=== PATIENT | male | born 1950 | race Caucasian/White ===

== ENCOUNTER 2016-05-31 01:16 | Emergency (ER) | payer BC ==
[2016-05-31] MEDS ORDERED: KETOROLAC 60 MG/2 ML VIAL IVP STA (01:31)
[2016-05-31] MEDS ORDERED: KETOROLAC 30 MG/ML VIAL ONE (01:42)
[2016-05-31 01:43] LABS: BILIRUBIN,URINE NEGATIVE (NEGATIVE)
[2016-05-31 01:44] LABS: UA w/ MICROSCOPIC CHARGE YES
--- NOTE | 2016-05-31 01:51 | ED Physician Documentation ---
PD HPI BACK PAIN - Stated complaint Stated Complaint: L FLANK PX - Chief complaint Chief Complaint: Back Pain - History obtained from History obtained from: Patient, Family - History of Present Illness Timing - onset: How many days ago (2) Timing - details: Still present, Intermittant Location: Left Quality: Pain, Aching Associated symptoms: Fever. No: Weakness, Numbness, Incontinent of urine, Unable to urinate Improves with: Nothing Worsened by: Twisting, Palpation Contributing factors: Twisting Similar symptoms before: Has not had sx before Recently seen: Not recently seen - Additional information Additional information: Patient is a 66 year old male with a history of a prior [place] who is presenting to the emergency department for left sided flank pain. Patient states that he broke or bruised a rib last year but he has been better for awhile., patient states that for the last two days he has had intermittent stabbing left sided flank pain, with radiation to his groin. Patient denies any trauma bur reports he did have to run out of his car quickly two days prior because his engine started smoking. Review of Systems Constitutional: reports: Fever, Chills Eyes: denies: Loss of vision, Decreased vision Ears: denies: Loss of hearing, Ear pain, Drainage/discharge Nose: denies: Rhinorrhea / runny nose, Congestion, Sinus pressure / pain Throat: denies: Dental pain / toothache, Oral lesions / sores Cardiac: reports: Pedal edema. denies: Chest pain / pressure, Palpitations Respiratory: denies: Dyspnea, Cough, Wheezing GI: reports: Abdominal Pain. denies: Nausea, Vomiting, Constipation, Diarrhea : denies: Dysuria, Frequency, Hesitancy, Hematuria Skin: denies: Rash, Lesions, Abrasion (s), Laceration (s) Musculoskeletal: reports: Back pain. denies: Joint pain Neurologic: denies: Generalized weakness, Focal weakness, Numbness Immunocompromised: denies: Immunocompromised PD PAST MEDICAL HISTORY - Past Medical History Cardiovascular: Hypertension, High cholesterol Respiratory: None Neuro: None Endocrine/Autoimmune: Type 2 diabetes GI: GERD : None HEENT: Other Psych: None Musculoskeletal: None Derm: None - Past Surgical History Past Surgical History: Yes HEENT: Cataracts - Present Medications Home Medications: Ambulatory Orders Medication Instructions Recorded Confirmed Insulin Glargine [Lantus Solostar] 46 unit SUBQ DAILY 03/10/14 05/31/16 Metformin HCl [Metformin HCl ER] 1,000 mg PO DAILY 03/10/14 04/20/16 Aspirin 81 mg PO DAILY 04/20/16 05/31/16 Atorvastatin Calcium 80 mg PO DAILY 04/20/16 05/31/16 Chlorthalidone 25 mg PO DAILY 04/20/16 05/31/16 Clopidogrel Bisulfate [Plavix] 75 mg PO DAILY 04/20/16 04/20/16 Lisinopril 1 tab PO DAILY 04/20/16 04/20/16 Metoprolol Succinate 100 mg PO DAILY 04/20/16 04/20/16 amLODIPine [Norvasc] 5 mg PO DAILY 04/20/16 05/31/16 Carvedilol 25 mg PO BID 05/31/16 05/31/16 Insulin Lispro [Humalog] 05/31/16 Losartan Potassium 50 mg PO DAILY 05/31/16 05/31/16 - Allergies Allergies/Adverse Reactions: Allergies Allergy/AdvReac Type Severity Reaction Status Date / Time No Known Drug Allergies Allergy Verified 04/20/16 05:46 - Social History Does the pt smoke?: No Smoking Status: Never smoker Does the pt drink ETOH?: No Does the pt have substance abuse?: No - Immunizations Immunizations are current?: Yes - POLST Patient has POLST: No PD ED PE NORMAL - Vitals Vital signs reviewed: Yes - General General: Alert and oriented X 3 - HEENT HEENT: Atraumatic, PERRL, Pharynx benign - Neck Neck: Supple, no meningeal sign, No JVD - Cardiac Cardiac: RRR, No murmur - Respiratory Respiratory: No respiratory distress - Abdomen Abdomen: Soft - Neuro Neuro: Alert and oriented X 3, 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 No: Vertebral tenderness - Extremities Extremities: Pedal edema bilateral Results - Vitals Vitals: Vital Signs - 24 hr 05/31/16 05/31/16 01:31 02:24 Temperature 37.5 C Heart Rate 77 67 Respiratory 15 16 Rate Blood Pressure 182/72 H 173/69 H O2 Saturation 98 97 Oxygen O2 Source Room air - Labs Labs: Laboratory Tests 0205/31/16 05/31/16 01:25 01:40 01:55 WBC 12.0 H RBC 4.12 L Hgb 11.2 L Hct 34.1 L MCV 82.7 MCH 27.1 MCHC 32.8 RDW 15.1 H Plt Count 227 MPV 9.8 Neut # 8.8 H Lymph # 1.5 [place] # 1.1 H Eos # 0.5 Baso # 0.2 H Absolute Nucleated RBC 0.01 Nucleated RBCs 0.1 Sodium 134 L Potassium 4.5 Chloride 102 Carbon Dioxide 24 Anion Gap 8.0 BUN 45 H Creatinine 1.9 H Estimated GFR (MDRD) 36 L Glucose 236 H Calcium 8.8 Total Bilirubin 0.5 AST 18 ALT 21 Alkaline Phosphatase 121 Troponin I Total Protein 6.5 L Albumin 3.4 Globulin 3.1 Albumin/Globulin Ratio 1.1 Lipase 26 Urine Color YELLOW Urine Clarity CLEAR Urine pH 6.0 Ur Specific [place] 1.025 Urine Protein >=300 Urine Glucose (UA) 250 H Urine Ketones NEGATIVE Urine Occult Blood SMALL H Urine Nitrite NEGATIVE Urine Bilirubin NEGATIVE Urine Urobilinogen 0.2 (NORMAL) Ur Leukocyte Esterase NEGATIVE Urine RBC 0-5 Urine WBC 0-3 Ur Squamous Epith Cells RARE Squamous Urine Bacteria Rare Urine Casts 3-5 Hyaline Casts Ur Microscopic Review INDICATED Urine Culture Comments NOT INDICATED 05/31/16 01:55 WBC RBC Hgb Hct MCV MCH MCHC RDW Plt Count MPV Neut # Lymph # [place] # Eos # Baso # Absolute Nucleated RBC Nucleated RBCs Sodium Potassium Chloride Carbon Dioxide Anion Gap BUN Creatinine Estimated GFR (MDRD) Glucose Calcium Total Bilirubin AST ALT Alkaline Phosphatase Troponin I < 0.04 Total Protein Albumin Globulin Albumin/Globulin Ratio Lipase Urine Color Urine Clarity Urine pH Ur Specific [place] Urine Protein Urine Glucose (UA) Urine Ketones Urine Occult Blood Urine Nitrite Urine Bilirubin Urine Urobilinogen Ur Leukocyte Esterase Urine RBC Urine WBC Ur Squamous Epith Cells Urine Bacteria Urine Casts Ur Microscopic Review Urine Culture Comments - Rads (name of study) ct abdomen/pelvis Radiology: Final report received (no urolithiasis, mild bibasilar atelectasis, trace pericardial effusion, moderate stool in the colon, ), See rad report PD MEDICAL DECISION MAKING - ED course Complexity details: reviewed old records, reviewed results, re-evaluated patient , considered differential, d/w patient, d/w family ED course: Patient was seen and examined at bedside. Patient's urine was collected. albs and imaging was ordered as pyelonephritis and renal stone were a possibility. Patient was treated with toradol for pain. When patient returned the results were reviewed. There was no acute pathology noted. Patient's renal insufficiency and leukocytosis was at patient's baseline. Patient had cardiology next week and continued to deny any chest pain. Patient's pain improved from an 8 to a 2. Patient required no further work up and was stable for discharge with outpatient follow up. Departure - Departure Disposition: 01 Home, Self Care Clinical Impression: Left flank pain Condition: Good Instructions: ED Flank Pain Uncertain Cause Follow-Up: Se Mercado MD [Primary Care Provider] - Comments: Your diagnostics today were unremarkable. There is no sign of fracture, infection or kidney stone. Your pain is likely musculoskeletal in nature. You should take tylenol as needed for pain. You can also use ice and/or heat to help with the pain. Your swelling and breathing is likely due to your heart. You should go to your appointment with your heart doctor next week. You should continue with your medications, and low salt, low fat diet. You may return to the emergency department at any time for new, worsening or uncontrollable symptoms.
[2016-05-31 01:56] LABS: WBC,URINE 0-3 /HPF (0-3)
[2016-05-31 02:16] LABS: ALBUMIN/GLOBULIN RATIO 1.1 (1.0-2.2); BILIRUBIN,TOTAL 0.5 mg/dL (0.2-1.0); CALCIUM 8.8 mg/dL (8.5-10.3); CREATININE 1.9 mg/dL (0.6-1.2); POTASSIUM 4.5 mmol/L (3.5-5.0); TOTAL PROTEIN 6.5 g/dL (6.7-8.2)
[2016-05-31 02:41] LABS: BASOPHILS # (AUTO) 0.2 10^3/uL (0.0-0.1); BASOPHILS % (AUTO) 1.3 %; EOSINOPHILS # (AUTO) 0.5 10^3/uL (0.0-0.7); HCT - HEMATOCRIT 34.1 % (42.0-52.0); HGB - HEMOGLOBIN 11.2 g/dL (14.0-18.0); LYMPHOCYTES # (AUTO) 1.5 10^3/uL (1.5-3.5); LYMPHOCYTES % (AUTO) 12.7 %; MEAN CORPUSCULAR HEMOGLOBIN 27.1 pg (27.0-31.0); MEAN CORPUSCULAR HGB CONC 32.8 g/dL (32.0-36.0); MEAN CORPUSCULAR VOLUME 82.7 fL (80.0-94.0); MEAN PLATELET VOLUME 9.8 fL (7.4-11.4); MONOCYTES # (AUTO) 1.1 10^3/uL (0.0-1.0); MONOCYTES % (AUTO) 8.9 %; NEUTROPHILS # (AUTO) 8.8 10^3/uL (1.5-6.6); NEUTROPHILS % (AUTO) 73.1 %; NUCLEATED RED BLOOD CELLS AUTO 0.1 /100WBC; RED BLOOD COUNT 4.12 10^6/uL (4.70-6.10); RED CELL DISTRIBUTION WIDTH 15.1 % (12.0-15.0)
--- NOTE | 2016-05-31 02:47 | CT Preliminary Report ---
Exam: CT Abdomen/Pelvis W/O IMPRESSION: 1. No urolithiasis seen. 2. Mild bibasilar atelectasis or infiltrate with small pleural effusions. 3. Coronary artery calcifications. Trace pericardial effusion. 4. Moderate stool in the colon, right greater than left. 5. Appendix appears normal. [facility] SITE ID: [id number]
--- NOTE | 2016-05-31 02:50 | CT Report ---
EXAM: CT ABDOMEN AND PELVIS (CT KUB) EXAM DATE: 05/31/2016 02:14 AM. CLINICAL HISTORY: Right sided flank pain, hx of stones. COMPARISONS: 10/06/2014. TECHNIQUE: Routine axial helical CT imaging was performed through the abdomen and pelvis without IV c ontrast. Reconstructions: Coronal and sagittal. In accordance with CT protocol optimization, one or more of the following dose reduction techniques w ere utilized for this exam: automated exposure control, adjustment of mA and/or KV based on patient s ize, or use of iterative reconstructive technique. FINDINGS: Lung Bases: Mild bibasilar atelectasis or infiltrate with small pleural effusions. Coronary artery ca lcifications. Trace pericardial effusion. Right Kidney/Ureter: No stones are seen in the kidney. No ureteral stone or obstructive uropathy iden tified. Left Kidney/Ureter: No stones are seen in the kidney. No ureteral stone or obstructive uropathy ident ified. Other Abdominal Organs: Noncontrast images of the abdominal organs are grossly unremarkable. Peritoneal Cavity: Moderate stool in the colon, right greater than left. Colonic diverticula without evidence of diverticulitis. No bowel obstruction seen. No free air or free fluid. No lymphadenopathy. Appendix appears normal. Pelvic Organs: No bladder stones or wall thickening. Noncontrast images of the visualized pelvic orga ns are unremarkable. Vasculature: Unremarkable. Other: Healing left rib fractures. Degenerative changes in the spine with spinal stenosis. IMPRESSION: 1. No urolithiasis seen. 2. Mild bibasilar atelectasis or infiltrate with small pleural effusions. 3. Coronary artery calcifications. Trace pericardial effusion. 4. Moderate stool in the colon, right greater than left. 5. Appendix appears normal. [facility] Referring Provider Line: [phone] SITE ID: [id number]
[2016-05-31 02:57] LABS: UR CULTURE IF IND NOT INDICATED
[2016-05-31 03:24] VITALS: BP 158/92
== END 2016-05-31 03:23 | disposition home or self-care (01) ==
LOC: ED 01:16
DX: R10.9 Unspecified abdominal pain (principal); R60.0 Localized edema; N28.9 Disorder of kidney and ureter, unspecified; I25.2 Old myocardial infarction; I10 Essential (primary) hypertension; E11.9 Type 2 diabetes mellitus without complications; Z79.4 Long term (current) use of insulin; Z79.02 Long term (current) use of antithrombotics/antiplatelets; Z79.82 Long term (current) use of aspirin
CPT/HCPCS: 36415; 74176; 80053; 81001; 81003; 83690; 84484; 85025; 87086; 96374; 99283; 99284

== ENCOUNTER 2016-06-10 | Outpatient (CLI) | payer BC | END 2016-06-10 04:40 | disposition critical access hospital (66) | CPT/HCPCS: A0425; A0427 ==

== ENCOUNTER 2016-06-10 05:08 | Emergency (ER) | payer BC ==
[2016-06-10] MEDS ORDERED: levoFLOXacin 250 MG TABLET PO STA (07:13)
[2016-06-10] MEDS ORDERED: ALBUTEROL 8 GM INHALER INH STA (07:13)
[2016-06-10] MEDS ORDERED: levoFLOXacin 250 MG TABLET PO ONE (07:16)
[2016-06-10] MEDS ORDERED: ALBUTEROL 8 GM INHALER INH ONE (07:18)
== END 2016-06-10 08:07 | disposition home or self-care (01) ==
DX: J18.9 Pneumonia, unspecified organism (principal); I10 Essential (primary) hypertension; E78.00 Pure hypercholesterolemia, unspecified; E11.9 Type 2 diabetes mellitus without complications; Z79.4 Long term (current) use of insulin; K21.9 Gastro-esophageal reflux disease without esophagitis; Z79.82 Long term (current) use of aspirin
CPT/HCPCS: 36415; 71020; 83880; 84484; 85025; 87275; 87276; 93005; 94640; 99284; A9270

== ENCOUNTER 2016-06-14 15:58 | Outpatient (CLI) | payer BC | END 2016-06-14 15:59 | disposition home or self-care (01) | DX: E11.65 Type 2 diabetes mellitus with hyperglycemia (principal) ==

== ENCOUNTER 2016-06-20 15:52 | Outpatient (CLI) | payer BC | END 2016-06-20 15:53 | disposition home or self-care (01) | DX: E11.65 Type 2 diabetes mellitus with hyperglycemia (principal) ==

== ENCOUNTER 2016-06-27 16:09 | Outpatient (CLI) | payer BC | END 2016-06-27 16:10 | disposition home or self-care (01) | DX: E11.65 Type 2 diabetes mellitus with hyperglycemia (principal) ==

== ENCOUNTER 2016-07-23 15:10 | Outpatient (CLI) | payer BC | END 2016-07-23 15:11 | disposition home or self-care (01) | DX: I10 Essential (primary) hypertension (principal) ==

== ENCOUNTER 2016-08-14 15:24 | Outpatient (CLI) | payer BC | END 2016-08-14 15:25 | disposition EMS.NT | DX: R41.82 Altered mental status, unspecified (principal); E16.2 Hypoglycemia, unspecified ==

== ENCOUNTER 2016-08-22 14:41 | Outpatient (CLI) | payer BC | END 2016-08-22 14:42 | disposition home or self-care (01) | DX: N05.9 Unspecified nephritic syndrome with unspecified morphologic changes (principal); D70.9 Neutropenia, unspecified; R80.9 Proteinuria, unspecified ==

== ENCOUNTER 2016-09-24 16:00 | Outpatient (CLI) | payer BC ==
[2016-09-24 18:28] LABS: CALCIUM 9.1 mg/dL (8.5-10.3); CREATININE 2.3 mg/dL (0.6-1.2); POTASSIUM 4.8 mmol/L (3.5-5.0)
== END 2016-09-24 23:59 | disposition home or self-care (01) ==
LOC: LAB.F 16:00
PROVIDERS: ATTEND Internal Medicine
DX: R60.0 Localized edema (principal); N04.9 Nephrotic syndrome with unspecified morphologic changes
CPT/HCPCS: 36415; 80048

== ENCOUNTER 2016-10-04 14:26 | Outpatient (CLI) | payer BC ==
[2016-10-04 18:01] LABS: CALCIUM 9.1 mg/dL (8.5-10.3); CREATININE 2.3 mg/dL (0.6-1.2); PHOSPHORUS 4.3 mg/dL (2.5-4.6); POTASSIUM 4.5 mmol/L (3.5-5.0)
[2016-10-06 16:47] LABS: ALPHA 1 GLOBULIN 0.3 g/dL (0.2-0.3); ALPHA 2 GLOBULIN 0.8 g/dL (0.5-0.9); BETA 1 GLOBULIN 0.5 g/dL (0.4-0.6); BETA 2 GLOBULIN 0.3 g/dL (0.2-0.5); GAMMA GLOBULIN 0.8 g/dL (0.8-1.7)
[2016-10-06 20:42] LABS: LAMBDA LIGHT CHAINS 119 mg/dL (91-240)
[2016-10-09 23:19] LABS: TEST RESULT REPORT (())
== END 2016-10-04 14:27 | disposition home or self-care (01) ==
LOC: LAB.F 14:26
PROVIDERS: ATTEND Internal Medicine Nephrology
DX: N05.9 Unspecified nephritic syndrome with unspecified morphologic changes (principal); I50.32 Chronic diastolic (congestive) heart failure; R80.9 Proteinuria, unspecified; D47.2 Monoclonal gammopathy; E83.30 Disorder of phosphorus metabolism, unspecified; N25.81 Secondary hyperparathyroidism of renal origin
CPT/HCPCS: 36415; 80048; 81599; 82570; 83880; 83883; 83970; 84100; 84155; 84156; 84165; 84166

== ENCOUNTER 2016-10-18 10:30 | Outpatient (CLI) | payer BC ==
[2016-10-24 23:12] LABS: TEST RESULT REPORT (())
== END 2016-10-18 10:31 | disposition home or self-care (01) ==
LOC: LAB.F 10:30
PROVIDERS: ATTEND Internal Medicine Nephrology
DX: N05.9 Unspecified nephritic syndrome with unspecified morphologic changes (principal); N18.3 Chronic kidney disease, stage 3 (moderate); D47.2 Monoclonal gammopathy
CPT/HCPCS: 81599; 82570; 86335

== ENCOUNTER 2016-11-26 12:39 | Outpatient (CLI) | payer BC ==
[2016-11-26 18:41] LABS: BASOPHILS # (AUTO) 0.2 10^3/uL (0.0-0.1); BASOPHILS % (AUTO) 1.3 %; EOSINOPHILS # (AUTO) 0.3 10^3/uL (0.0-0.7); EOSINOPHILS % (AUTO) 2.3 %; HCT - HEMATOCRIT 36.2 % (42.0-52.0); HGB - HEMOGLOBIN 11.7 g/dL (14.0-18.0); LYMPHOCYTES # (AUTO) 1.9 10^3/uL (1.5-3.5); LYMPHOCYTES % (AUTO) 14.6 %; MEAN CORPUSCULAR HEMOGLOBIN 26.9 pg (27.0-31.0); MEAN CORPUSCULAR HGB CONC 32.3 g/dL (32.0-36.0); MEAN CORPUSCULAR VOLUME 83.4 fL (80.0-94.0); MEAN PLATELET VOLUME 9.5 fL (7.4-11.4); MONOCYTES # (AUTO) 0.6 10^3/uL (0.0-1.0); MONOCYTES % (AUTO) 4.5 %; NEUTROPHILS % (AUTO) 77.3 %; RED BLOOD COUNT 4.34 10^6/uL (4.70-6.10); RED CELL DISTRIBUTION WIDTH 14.3 % (12.0-15.0)
[2016-11-26 19:04] LABS: CALCIUM 8.9 mg/dL (8.5-10.3); CREATININE 2.3 mg/dL (0.6-1.2)
[2016-11-26 20:24] LABS: HEMOGLOBIN A1C 0.84 g/dL
== END 2016-11-26 12:40 | disposition home or self-care (01) ==
LOC: LAB.F 12:39
PROVIDERS: ATTEND Internal Medicine Nephrology
DX: E11.65 Type 2 diabetes mellitus with hyperglycemia (principal); E78.00 Pure hypercholesterolemia, unspecified; N18.9 Chronic kidney disease, unspecified; N05.9 Unspecified nephritic syndrome with unspecified morphologic changes
CPT/HCPCS: 36415; 80048; 83036; 85025

== ENCOUNTER 2017-04-23 14:41 | Outpatient (CLI) | payer MEDICARE ==
[2017-04-23 18:42] LABS: CALCIUM 8.7 mg/dL (8.5-10.3); CREATININE 2.4 mg/dL (0.6-1.2)
[2017-04-23 18:47] LABS: CREATININE,URINE 92.7 mg/dL; PROTEIN/CREATININE RATIO,URINE 0.7 (<=0.2)
[2017-04-23 18:51] LABS: HGB - HEMOGLOBIN 11.4 g/dL (14.0-18.0); MEAN CORPUSCULAR HEMOGLOBIN 26.3 pg (27.0-31.0); MEAN CORPUSCULAR HGB CONC 31.9 g/dL (32.0-36.0); MEAN CORPUSCULAR VOLUME 82.4 fL (80.0-94.0); MEAN PLATELET VOLUME 9.5 fL (7.4-11.4); RED BLOOD COUNT 4.32 10^6/uL (4.70-6.10); RED CELL DISTRIBUTION WIDTH 14.4 % (12.0-15.0); WHITE BLOOD COUNT 11.4 x10^3/uL (4.8-10.8)
[2017-04-23 19:45] LABS: HB2 TOTAL 12.4 g/dL; HEMOGLOBIN A1C 1.06 g/dL
== END 2017-04-23 14:42 | disposition home or self-care (01) ==
LOC: LAB.F 14:41
PROVIDERS: ATTEND Physician Assistant Medical
DX: D70.9 Neutropenia, unspecified (principal); D63.1 Anemia in chronic kidney disease; R80.9 Proteinuria, unspecified; E11.9 Type 2 diabetes mellitus without complications; N05.9 Unspecified nephritic syndrome with unspecified morphologic changes
CPT/HCPCS: 36415; 80048; 82570; 83036; 84156

== ENCOUNTER 2017-04-30 14:33 | Outpatient (CLI) | payer MEDICARE, OTHER ==
[2017-04-30 19:34] LABS: BILIRUBIN,URINE NEGATIVE (NEGATIVE); GLUCOSE, URINE (UA) NEGATIVE (NEGATIVE); KETONES,URINE (UA) NEGATIVE (NEGATIVE); LEUKOCYTE ESTERASE, URINE NEGATIVE (NEGATIVE); NITRITE,URINE NEGATIVE (NEGATIVE); OCCULT BLOOD,URINE NEGATIVE (NEGATIVE); PROTEIN,URINE 30 mg/dL (NEGATIVE); UROBILINOGEN,URINE 0.2 (NORMAL) E.U./dL (NORMAL)
[2017-04-30 20:02] LABS: CLARITY,URINE CLEAR (CLEAR); RBC,URINE 0-5 /HPF (0-5); SQUAMOUS EPITHELIAL CELL,UR NONE SEEN (<= Few)
[2017-04-30 20:03] LABS: BACTERIA,URINE None Seen /HPF (None Seen); CASTS, URINE 0-2 Hyaline Casts /LPF
== END 2017-04-30 14:34 | disposition home or self-care (01) ==
LOC: LAB.F 14:33
PROVIDERS: ATTEND Physician Assistant Medical
DX: N39.0 Urinary tract infection, site not specified (principal)
CPT/HCPCS: 81001; 87086

== ENCOUNTER 2017-05-10 12:54 | Outpatient (CLI) | payer MEDICARE, OTHER ==
[2017-05-10 17:43] LABS: BASOPHILS # (AUTO) 0.1 10^3/uL (0.0-0.1); BASOPHILS % (AUTO) 1.2 %; EOSINOPHILS # (AUTO) 0.4 10^3/uL (0.0-0.7); EOSINOPHILS % (AUTO) 4.1 %; HGB - HEMOGLOBIN 11.8 g/dL (14.0-18.0); LYMPHOCYTES # (AUTO) 1.9 10^3/uL (1.5-3.5); LYMPHOCYTES % (AUTO) 17.6 %; MEAN CORPUSCULAR HEMOGLOBIN 26.9 pg (27.0-31.0); MEAN CORPUSCULAR HGB CONC 32.7 g/dL (32.0-36.0); MEAN CORPUSCULAR VOLUME 82.3 fL (80.0-94.0); MEAN PLATELET VOLUME 9.6 fL (7.4-11.4); MONOCYTES # (AUTO) 0.7 10^3/uL (0.0-1.0); MONOCYTES % (AUTO) 6.1 %; NEUTROPHILS # (AUTO) 7.7 10^3/uL (1.5-6.6); PLT - PLATELET COUNT 257 10^3/uL (130-450); RED CELL DISTRIBUTION WIDTH 14.3 % (12.0-15.0); WHITE BLOOD COUNT 10.8 x10^3/uL (4.8-10.8)
[2017-05-10 18:04] LABS: CHOL/HDL RATIO 2.8 (<5.0); CHOLESTEROL 99 mg/dL; HDL CHOLESTEROL 36 mg/dL; LDL CHOLESTEROL,CALCULATED 46 mg/dL; LDL/HDL RATIO 1.3 (<3.6); VLDL CHOLESTEROL 17 mg/dL
== END 2017-05-10 12:55 | disposition home or self-care (01) ==
LOC: LAB.F 12:54
PROVIDERS: ATTEND Physician Assistant Medical
DX: E78.00 Pure hypercholesterolemia, unspecified (principal)
CPT/HCPCS: 36415; 80061; 83721; 85025

== ENCOUNTER 2017-05-24 14:28 | Outpatient (CLI) | payer MEDICARE, OTHER ==
[2017-05-24 19:32] LABS: HB2 TOTAL 11.6 g/dL
== END 2017-05-24 14:29 | disposition home or self-care (01) ==
LOC: LAB.F 14:28
PROVIDERS: ATTEND Physician Assistant Medical
DX: E11.9 Type 2 diabetes mellitus without complications (principal); R53.83 Other fatigue; R68.89 Other general symptoms and signs
CPT/HCPCS: 36415; 83036; 84443

== ENCOUNTER 2017-06-11 13:52 | Outpatient (CLI) | payer MEDICARE, OTHER | END 2017-06-11 13:53 | disposition home or self-care (01) | LOC: SC 13:52 | PROVIDERS: ATTEND Internal Medicine Pulmonary Disease | DX: G47.10 Hypersomnia, unspecified (principal); G47.8 Other sleep disorders; R06.83 Snoring | CPT/HCPCS: 99203; G0463; 99212 ==

== ENCOUNTER 2017-07-29 14:38 | Outpatient (CLI) | payer MEDICARE, OTHER ==
[2017-07-29 20:10] LABS: HB2 TOTAL 12.3 g/dL; HEMOGLOBIN A1C 1.03 g/dL; HEMOGLOBIN A1C % 9.8 % (4.6-6.2)
== END 2017-07-29 14:39 | disposition home or self-care (01) ==
LOC: LAB.F 14:38
PROVIDERS: ATTEND Internal Medicine
DX: E11.65 Type 2 diabetes mellitus with hyperglycemia (principal)
CPT/HCPCS: 36415; 83036

== ENCOUNTER 2017-08-25 20:22 | Outpatient (CLI) | payer MEDICARE, OTHER | END 2017-08-25 20:23 | disposition home or self-care (01) | LOC: SC 20:22 | PROVIDERS: ATTEND Internal Medicine Pulmonary Disease | DX: G47.33 Obstructive sleep apnea (adult) (pediatric) (principal); G47.61 Periodic limb movement disorder | CPT/HCPCS: 95810 ==

== ENCOUNTER 2018-01-08 11:33 | Outpatient (CLI) | payer MEDICARE, OTHER ==
[2018-01-08 17:25] LABS: HGB - HEMOGLOBIN 11.9 g/dL (14.0-18.0); MEAN CORPUSCULAR HEMOGLOBIN 26.5 pg (27.0-31.0); MEAN CORPUSCULAR HGB CONC 32.2 g/dL (32.0-36.0); MEAN CORPUSCULAR VOLUME 82.3 fL (80.0-94.0); RED BLOOD COUNT 4.5 10^6/uL (4.70-6.10); RED CELL DISTRIBUTION WIDTH 14.7 % (12.0-15.0); WHITE BLOOD COUNT 11.8 x10^3/uL (4.8-10.8)
[2018-01-08 17:45] LABS: HB2 TOTAL 12.4 g/dL; HEMOGLOBIN A1C 1.38 g/dL; HEMOGLOBIN A1C % 12.3 % (4.6-6.2)
[2018-01-08 17:50] LABS: BUN - BLOOD UREA NITROGEN 48 mg/dL (6-20); CARBON DIOXIDE - CO2 27 mmol/L (21-32); CHLORIDE 99 mmol/L (101-111); CHOL/HDL RATIO 3.5 (<5.0); CHOLESTEROL 105 mg/dL; GFR - MDRD 34 (>89); GLUCOSE 164 mg/dL (70-100); HDL CHOLESTEROL 30 mg/dL; LDL CHOLESTEROL,CALCULATED 58 mg/dL; LDL/HDL RATIO 1.9 (<3.6); SODIUM 134 mmol/L (135-145); VLDL CHOLESTEROL 17 mg/dL
[2018-01-08 18:34] LABS: CREATININE,URINE 68.6 mg/dL; PROTEIN/CREATININE RATIO,URINE 2.1 (<=0.2)
== END 2018-01-08 11:34 | disposition home or self-care (01) ==
LOC: LAB.F 11:33
PROVIDERS: ATTEND Internal Medicine
DX: I10 Essential (primary) hypertension (principal); E11.65 Type 2 diabetes mellitus with hyperglycemia; N05.9 Unspecified nephritic syndrome with unspecified morphologic changes; D70.9 Neutropenia, unspecified; D63.1 Anemia in chronic kidney disease; R80.9 Proteinuria, unspecified
CPT/HCPCS: 36415; 80048; 80061; 82043; 82570; 83036; 83721; 84156; 85027

== ENCOUNTER 2018-02-10 11:42 | Outpatient (CLI) | payer MEDICARE, OTHER ==
[2018-02-10 18:06] LABS: HB2 TOTAL 11.1 g/dL; HEMOGLOBIN A1C 0.98 g/dL; HEMOGLOBIN A1C % 10.2 % (4.6-6.2)
== END 2018-02-10 11:43 | disposition home or self-care (01) ==
LOC: LAB.F 11:42
PROVIDERS: ATTEND Internal Medicine
DX: E11.8 Type 2 diabetes mellitus with unspecified complications (principal)
CPT/HCPCS: 36415; 83036

== ENCOUNTER 2018-02-27 13:05 | Outpatient (CLI) | payer MEDICARE, OTHER ==
[2018-02-27 17:24] LABS: HGB - HEMOGLOBIN 10.1 g/dL (14.0-18.0); MEAN CORPUSCULAR HEMOGLOBIN 26.8 pg (27.0-31.0); MEAN CORPUSCULAR HGB CONC 32.7 g/dL (32.0-36.0); MEAN CORPUSCULAR VOLUME 82.1 fL (80.0-94.0); MEAN PLATELET VOLUME 10.2 fL (7.4-11.4); RED BLOOD COUNT 3.76 10^6/uL (4.70-6.10); RED CELL DISTRIBUTION WIDTH 14.8 % (12.0-15.0); WHITE BLOOD COUNT 10.1 x10^3/uL (4.8-10.8)
[2018-02-27 17:52] LABS: CALCIUM 8.5 mg/dL (8.5-10.3); CREATININE 2.5 mg/dL (0.6-1.2)
== END 2018-02-27 13:06 | disposition home or self-care (01) ==
LOC: LAB.F 13:05
PROVIDERS: ATTEND Family Medicine
DX: R06.00 Dyspnea, unspecified (principal); R60.9 Edema, unspecified; N18.9 Chronic kidney disease, unspecified
CPT/HCPCS: 36415; 80048; 83880; 85027

== ENCOUNTER 2018-03-07 13:32 | Outpatient (CLI) | payer MEDICARE, OTHER ==
[2018-03-07 19:53] LABS: CALCIUM 8.8 mg/dL (8.5-10.3); CREATININE 3.1 mg/dL (0.6-1.2)
== END 2018-03-07 13:33 | disposition home or self-care (01) ==
LOC: LAB.F 13:32
PROVIDERS: ATTEND Internal Medicine Nephrology
DX: N05.9 Unspecified nephritic syndrome with unspecified morphologic changes (principal)
CPT/HCPCS: 36415; 80048

== ENCOUNTER 2018-04-07 11:19 | Outpatient (CLI) | payer MEDICARE, OTHER ==
[2018-04-07 18:32] LABS: HGB - HEMOGLOBIN 10.1 g/dL (14.0-18.0); MEAN CORPUSCULAR HEMOGLOBIN 27.1 pg (27.0-31.0); MEAN CORPUSCULAR HGB CONC 32.5 g/dL (32.0-36.0); MEAN CORPUSCULAR VOLUME 83.3 fL (80.0-94.0); MEAN PLATELET VOLUME 9.7 fL (7.4-11.4); RED BLOOD COUNT 3.72 10^6/uL (4.70-6.10); RED CELL DISTRIBUTION WIDTH 14.5 % (12.0-15.0); WHITE BLOOD COUNT 9.3 x10^3/uL (4.8-10.8)
[2018-04-07 18:38] LABS: CALCIUM 8.7 mg/dL (8.5-10.3); CREATININE 2.5 mg/dL (0.6-1.2)
== END 2018-04-07 11:20 | disposition home or self-care (01) ==
LOC: LAB.F 11:19
PROVIDERS: ATTEND Internal Medicine Nephrology
DX: N05.9 Unspecified nephritic syndrome with unspecified morphologic changes (principal); I50.32 Chronic diastolic (congestive) heart failure; D63.1 Anemia in chronic kidney disease; D70.9 Neutropenia, unspecified
CPT/HCPCS: 36415; 80048; 83880; 85027

== ENCOUNTER 2018-05-01 11:08 | Outpatient (CLI) | payer MEDICARE, OTHER ==
[2018-05-01 11:25] LABS: CREATININE 2.4 mg/dL (0.6-1.2)
== END 2018-05-01 11:09 | disposition home or self-care (01) ==
LOC: LAB 11:08
PROVIDERS: ATTEND Internal Medicine Nephrology
DX: N05.9 Unspecified nephritic syndrome with unspecified morphologic changes (principal)
CPT/HCPCS: 36415; 80048

== ENCOUNTER 2018-06-02 13:56 | Outpatient (CLI) | payer MEDICARE, OTHER | END 2018-06-02 13:57 | disposition short-term general hospital (02) | LOC: EMS 13:56 | PROVIDERS: ATTEND Surgery | DX: R06.02 Shortness of breath (principal); R53.83 Other fatigue; R07.9 Chest pain, unspecified | CPT/HCPCS: A0425; A0429 ==

== ENCOUNTER 2018-06-25 14:06 | Outpatient (CLI) | payer MEDICARE, OTHER ==
[2018-06-25 18:02] LABS: CALCIUM 9.3 mg/dL (8.5-10.3)
== END 2018-06-25 14:07 | disposition home or self-care (01) ==
LOC: LAB.F 14:06
PROVIDERS: ATTEND Internal Medicine Nephrology
DX: N05.9 Unspecified nephritic syndrome with unspecified morphologic changes (principal); I50.32 Chronic diastolic (congestive) heart failure
CPT/HCPCS: 36415; 80048; 83880

== ENCOUNTER 2018-07-30 13:22 | Outpatient (CLI) | payer MEDICARE, OTHER ==
[2018-07-30 18:37] LABS: CALCIUM 8.4 mg/dL (8.5-10.3)
== END 2018-07-30 13:23 | disposition home or self-care (01) ==
LOC: LAB.F 13:22
PROVIDERS: ATTEND Internal Medicine Nephrology
DX: N05.9 Unspecified nephritic syndrome with unspecified morphologic changes (principal)
CPT/HCPCS: 36415; 80048

== ENCOUNTER 2018-08-13 13:25 | Outpatient (CLI) | payer MEDICARE, OTHER ==
[2018-08-13 17:41] LABS: HGB - HEMOGLOBIN 11.6 g/dL (14.0-18.0); MEAN CORPUSCULAR HEMOGLOBIN 26.4 pg (27.0-31.0); MEAN CORPUSCULAR HGB CONC 31.9 g/dL (32.0-36.0); MEAN CORPUSCULAR VOLUME 82.8 fL (80.0-94.0); MEAN PLATELET VOLUME 9.5 fL (7.4-11.4); RED BLOOD COUNT 4.38 10^6/uL (4.70-6.10); WHITE BLOOD COUNT 12.9 x10^3/uL (4.8-10.8)
[2018-08-13 19:04] LABS: PROTEIN/CREATININE RATIO,URINE 1.8 (<=0.2)
[2018-08-13 19:44] LABS: CALCIUM 8.4 mg/dL (8.5-10.3); CREATININE 2.7 mg/dL (0.6-1.2)
== END 2018-08-13 13:26 | disposition home or self-care (01) ==
LOC: LAB.F 13:25
PROVIDERS: ATTEND Internal Medicine Nephrology
DX: N05.9 Unspecified nephritic syndrome with unspecified morphologic changes (principal); D70.9 Neutropenia, unspecified; D63.1 Anemia in chronic kidney disease; R80.9 Proteinuria, unspecified
CPT/HCPCS: 36415; 80048; 82570; 84156; 85027

== ENCOUNTER 2018-08-14 10:09 | Outpatient (CLI) | payer MEDICARE, OTHER ==
[2018-08-14 20:06] LABS: HEMOGLOBIN A1C 0.75 g/dL; HEMOGLOBIN A1C % 7.9 % (4.6-6.2)
== END 2018-08-14 10:10 | disposition home or self-care (01) ==
LOC: LAB.F 10:09
PROVIDERS: ATTEND Internal Medicine
DX: E11.9 Type 2 diabetes mellitus without complications (principal)
CPT/HCPCS: 36415; 83036

== ENCOUNTER 2018-08-23 19:05 | Outpatient (CLI) | payer MEDICARE, OTHER | END 2018-08-23 19:06 | disposition critical access hospital (66) | LOC: EMS 19:05 | PROVIDERS: ATTEND Surgery | DX: R07.81 Pleurodynia (principal); W10.8XXA Fall (on) (from) other stairs and steps, initial encounter; Y92.008 Other place in unspecified non-institutional (private) residence as the place of occurrence of the external cause | CPT/HCPCS: A0425; A0429 ==

== ENCOUNTER 2018-08-23 19:33 | Emergency (ER) | payer MEDICARE, OTHER ==
[2018-08-23] MEDS ORDERED: KETOROLAC 60 MG/2 ML VIAL IM STA (20:13)
--- NOTE | 2018-08-23 20:16 | ED Physician Documentation ---
PD HPI TRUNK INJURY - Stated complaint Stated Complaint: FELL, RIGHT RIB PAIN, SHOULDER PAIN - Chief complaint Chief Complaint: Trauma Ch/Bk - History obtained from History obtained from: Patient, Family - History of Present Illness Location: Right chest Type of injury: Fall Timing - onset: Enter time (1500), Today Timing - duration: Hours Timing - details: Abrupt onset, Still present Quality: Pain, Spasm, Sharp Improved by: Rest Worsened by: Moving, Palpating Associated symtptoms: No: Weakness, Numbness, Tingling, Swelling Contributing factors: No: Anticoagulated Where injury occured: Home Similar symptoms before: Diagnosis (rib contusion) Recently seen: Admitted (for CHF in May) - Additional information Additional information: 68-year-old male with a history of coronary artery disease was walking out of his house today tumbled down 4 steps landing on concrete hearing a crack when he landed and has severe pain in his right lateral rib cage. He has pain to moving around to breathing and the pain is worsening over time. He did this at about 3:00 this afternoon is been unable to get comfortable. He has not taken any medications for his pain. The patient has recently been admitted into [facility] in [place] for congestive heart failure he retained significant fluid secondary to a kidney problem and he has been diuresed from 257 down to 193. Review of Systems Constitutional: denies: Fever Eyes: denies: Decreased vision Ears: denies: Ear pain Nose: denies: Rhinorrhea / runny nose, Congestion Throat: denies: Sore throat Cardiac: reports: Chest pain / pressure. denies: Palpitations, Pedal edema, Calf pain Respiratory: denies: Dyspnea, Cough, Wheezing GI: denies: Abdominal Pain, Nausea, Vomiting : denies: Dysuria, Frequency Skin: denies: Rash Musculoskeletal: denies: Neck pain, Back pain, Extremity pain Neurologic: denies: Generalized weakness, Focal weakness, Numbness PD PAST MEDICAL HISTORY - Past Medical History Cardiovascular: Hypertension, High cholesterol, [place] Respiratory: None Endocrine/Autoimmune: Type 2 diabetes GI: GERD : None HEENT: Other Psych: None Musculoskeletal: None Derm: None - Past Surgical History Past Surgical History: Yes Cardiovascular: Coronary stent HEENT: Cataracts - Present Medications Home Medications: Ambulatory Orders Medication Instructions Recorded Confirmed Insulin Glargine [Lantus Solostar] 40 unit SUBQ QPM 03/10/14 08/23/18 Aspirin 81 mg PO DAILY 04/20/16 08/23/18 Atorvastatin Calcium 80 mg PO DAILY 04/20/16 08/23/18 Carvedilol 25 mg PO DAILY 05/31/16 08/23/18 Insulin Lispro [Humalog] 20 - 24 units SQ TIDWM 05/31/16 08/23/18 Albuterol Sulfate [Proair Hfa 1 - 2 puffs INH Q4H PRN 08/23/18 08/23/18 Inhaler] Hydrocodone/Acetaminophen 1 - 2 each PO Q6H PRN #14 tablet 08/23/18 [Hydrocodon-Acetaminophen 5-325] Isosorbide Dinitrate [Isordil] 40 mg PO 08/23/18 Pantoprazole [Protonix] 40 mg PO 08/23/18 Sertraline [Zoloft] 50 mg PO DAILY 08/23/18 08/23/18 Spironolactone 50 mg PO 08/23/18 Torsemide [Demadex] 20 mg PO 08/23/18 hydrALAZINE [Apresoline] 50 mg PO 08/23/18 - Allergies Allergies/Adverse Reactions: Allergies Allergy/AdvReac Type Severity Reaction Status Date / Time No Known Drug Allergies Allergy Verified 08/23/18 19:38 - Social History Does the pt smoke?: No Smoking Status: Never smoker Does the pt drink ETOH?: No Does the pt have substance abuse?: No - Immunizations Immunizations are current?: Yes - POLST Patient has POLST: No PD ED PE NORMAL - Vitals Vital signs reviewed: Yes (hypertensive ) - General General: Alert and oriented X 3, Well developed/nourished, Other (appears to be in pain with zmt operator tone and flat affect. 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, No motor deficit, No sensory deficit, Normal speech Eye Opening: Spontaneous Motor: Obeys Commands Verbal: Oriented GCS Score: 15 - Psych Psych: Other (mood is painful and the affect is flat.) Results - Vitals Vitals: Vital Signs - 24 hr 08/23/18 19:33 Temperature 36.8 C Heart Rate 66 Respiratory 18 Rate Blood Pressure 173/81 H O2 Saturation 97 Oxygen O2 Source Room air - Rads (name of study) ribs and PA right Radiology: Prelim report reviewed (Impression: Probable right eighth and ninth rib fractures.), EMP read indepedently, See rad report Procedures - IVC sono (time) 2100 Bedside IVC sono: IVC measures (cm) (1.45), IVC collapsed c insp (cm) (complete), Dehydration (est 1 liter deficit) PD MEDICAL DECISION MAKING - ED course Complexity details: reviewed old records, reviewed results, re-evaluated patient, considered differential, d/w patient, d/w family ED course: 68-year-old male with a history of [place] and congestive heart failure with kidney failure has had a fall today he has broken 2 ribs. He was administered Toradol here in the emergency department IM and I have encouraged patient to not use any anti-inflammatories. He did get relief with this but he is on torsemide and has renal failure. I reviewed the patient's recent blood work and found his BUN markedly elevated at 109 and his creatinine elevated at 2.7. He has been on a double dose of his torsemide until yesterday. He appears to be at his dry weight and is a bit dehydrated today. I shared this information with the patient encouraged him to increase his fluids and reiterated not using ibuprofen or Aleve. He is dispensed hydrocodone. Departure - Departure Disposition: 01 Home, Self Care Clinical Impression: Rib fracture Qualifiers: Encounter type: initial encounter Rib fracture type: multiple ribs Fracture type: closed Laterality: right Qualified Code(s): S22.41XA - Multiple fractures of ribs, right side, initial encounter for closed fracture Condition: Stable Instructions: ED Fx Rib Follow-Up: Harman Madison MD [Credentialed Staff Provider] - Prescriptions: Hydrocodone/Acetaminophen [Hydrocodon-Acetaminophen 5-325] 1 - 2 each PO Q6H PRN #14 tablet PRN Reason: pain Comments: Today it appears you are at your dry weight and you are a bit dehydrated. Drink extra fluids and reduce your diuretics to their prior level. It is very important to do deep breathing several times per day as you do have 2 broken ribs and pneumonia is a complication.
[2018-08-23] MEDS ORDERED: HYDROcod/ACET 5/325 Prepack 4 PO STA (20:45)
--- NOTE | 2018-08-23 20:47 | XRAY Report ---
Reason: fall rib pain Procedure Date: 08/23/2018 Accession Number: [id number] / [id number] Procedure: XR - Ribs w/PA Chest RT CPT Code: FULL RESULT: EXAM: RIGHT RIB RADIOGRAPHY EXAM DATE: 08/23/2018 08:31 PM. CLINICAL HISTORY: Fall, rib pain COMPARISON: CHEST 2 VIEW PA/LAT 06/10/2016 5:59 AM. TECHNIQUE: 1 view of the chest and 2 views of the ribs. FINDINGS: Bones: Mild contour deformity of the right anterior ninth rib. Probable right anterolateral eighth rib fracture. Lungs: No focal opacities. No pneumothorax. No pleural effusions. Mediastinum: Heart and mediastinal contours are unremarkable. Other: None. IMPRESSION: Probable right eighth and ninth rib fractures. [facility]
[2018-08-23 21:19] VITALS: BP 174/61
== END 2018-08-23 21:22 | disposition home or self-care (01) ==
LOC: EDUNIT# → ED 19:33
DX: S22.41XA Multiple fractures of ribs, right side, initial encounter for closed fracture (principal); W10.9XXA Fall (on) (from) unspecified stairs and steps, initial encounter; Y93.01 Activity, walking, marching and hiking; Y92.008 Other place in unspecified non-institutional (private) residence as the place of occurrence of the external cause; E86.0 Dehydration; I10 Essential (primary) hypertension; E11.9 Type 2 diabetes mellitus without complications; Z79.4 Long term (current) use of insulin; I25.10 Atherosclerotic heart disease of native coronary artery without angina pectoris; I25.2 Old myocardial infarction; Z95.5 Presence of coronary angioplasty implant and graft; Z79.82 Long term (current) use of aspirin
CPT/HCPCS: 96372; 99283; 99284

== ENCOUNTER 2018-08-31 15:57 | Emergency (ER) | payer MEDICARE, OTHER ==
--- NOTE | 2018-08-31 16:39 | ED Physician Documentation ---
PD HPI SKIN - Stated complaint Stated Complaint: WOUND CARE - Chief complaint Chief Complaint: Laceration - History obtained from History obtained from: Patient, Family - History of Present Illness Timing - onset: Yesterday Timing - duration: Days (2) Timing - details: Gradual onset, Still present Location: Other (above the buttocks) Quality / character: Painful, Draining Contributing factors: Other (recent fall with rib fractures) Similar symptoms before: Has not had sx before Recently seen: Emergency Dept - Additional information Additional information: 68-year-old male who has had a recent fall and has nondisplaced ribs fracture of 2 ribs has been sitting more than usual and now he has an area right about his tailbone that is painful and is beginning to bleed. He states that otherwise he is getting along well with the rib fractures has some pain in his rib cage is doing his deep breathing and has been taking his pain medications. He has been taking Tylenol along with his Vicodin and he has been taking his many as 3 extra strength Tylenol with the Vicodin. He is only taking 1 Vicodin at a time. Review of Systems Constitutional: denies: Fever Eyes: denies: Decreased vision Ears: denies: Ear pain Nose: denies: Rhinorrhea / runny nose, Congestion Throat: denies: Sore throat Cardiac: reports: Chest pain / pressure. denies: Palpitations, Pedal edema, Calf pain Respiratory: reports: Dyspnea. denies: Cough GI: denies: Nausea, Vomiting Skin: reports: Lesions Musculoskeletal: reports: Back pain. denies: Neck pain Neurologic: denies: Generalized weakness, Focal weakness, Numbness PD PAST MEDICAL HISTORY - Past Medical History Past Medical History: No Cardiovascular: Hypertension, High cholesterol, [place] Respiratory: None Neuro: None Endocrine/Autoimmune: Type 2 diabetes GI: GERD : None HEENT: Other Psych: None Musculoskeletal: None Derm: None - Past Surgical History Past Surgical History: Yes Cardiovascular: Coronary stent HEENT: Cataracts - Present Medications Home Medications: Ambulatory Orders Medication Instructions Recorded Confirmed Insulin Glargine [Lantus Solostar] 40 unit SUBQ QPM 03/10/14 08/23/18 Aspirin 81 mg PO DAILY 04/20/16 08/23/18 Atorvastatin Calcium 80 mg PO DAILY 04/20/16 08/23/18 Carvedilol 25 mg PO DAILY 05/31/16 08/23/18 Insulin Lispro [Humalog] 20 - 24 units SQ TIDWM 05/31/16 08/23/18 Albuterol Sulfate [Proair Hfa 1 - 2 puffs INH Q4H PRN 08/23/18 08/23/18 Inhaler] Hydrocodone/Acetaminophen 1 - 2 each PO Q6H PRN #14 tablet 08/23/18 [Hydrocodon-Acetaminophen 5-325] Isosorbide Dinitrate [Isordil] 40 mg PO 08/23/18 Pantoprazole [Protonix] 40 mg PO 08/23/18 Sertraline [Zoloft] 50 mg PO DAILY 08/23/18 08/23/18 Spironolactone 50 mg PO 08/23/18 Torsemide [Demadex] 20 mg PO 08/23/18 hydrALAZINE [Apresoline] 50 mg PO 08/23/18 - Allergies Allergies/Adverse Reactions: Allergies Allergy/AdvReac Type Severity Reaction Status Date / Time No Known Drug Allergies Allergy Verified 08/31/18 16:05 - Social History Does the pt smoke?: No Smoking Status: Never smoker Does the pt drink ETOH?: No Does the pt have substance abuse?: No - Immunizations Immunizations are current?: Yes - POLST Patient has POLST: No PD ED PE NORMAL - Vitals Vital signs reviewed: Yes (normal ) - General General: Alert and oriented X 3, No acute distress, Well developed/nourished - HEENT HEENT: Atraumatic, PERRL, EOMI - Respiratory Respiratory: No respiratory distress - Derm Derm: Normal color, Warm and dry, No rash, Other (over the tailbone there is a grade one pressure ulcer. There are hyperemic skin changes and some skin breakdown. This does not penetrate the dermis. The size is about 3cm across X 1cm tall. ) - Extremities Extremities: No deformity, No edema - Neuro Neuro: Alert and oriented X 3, chicken picker 2-12 intact, No motor deficit, No sensory deficit, Normal speech Eye Opening: Spontaneous Motor: Obeys Commands Verbal: Oriented GCS Score: 15 - Psych Psych: Normal mood, Normal affect, Other (in a better mood today does not appear to be in as much pain. ) Results - Vitals Vitals: Vital Signs - 24 hr 08/31/18 16:02 Temperature 36.5 C Heart Rate 89 Respiratory 18 Rate Blood Pressure 123/47 L O2 Saturation 97 Oxygen O2 Source Room air PD MEDICAL DECISION MAKING - ED course Complexity details: considered differential, d/w patient, d/w family ED course: 68-year-old male with a beginning pressure ulcer on his sacrum is given local wound care and he is instructed to avoid pressure on this area. Departure - Departure Disposition: 01 Home, Self Care Clinical Impression: Pressure ulcer of buttock Qualifiers: Pressure injury stage: stage 1 Laterality: unspecified laterality Qualified Code(s): L89.301 - Pressure ulcer of unspecified buttock, stage 1 Condition: Stable Instructions: ED Pressure Injury Follow-Up: Harman Madison MD [Primary Care Provider] - Comments: Today you have the beginning of a pressure ulcer on your sacrum. Avoid this area as much as possible while sitting or laying. Switch positions frequently. Follow-up with your primary care doctor for further wound care and further help is available if you do not have rapid and adequate healing.
[2018-08-31 16:55] VITALS: BP 138/49
== END 2018-08-31 16:56 | disposition home or self-care (01) ==
LOC: ED 15:57
DX: L89.151 Pressure ulcer of sacral region, stage 1 (principal); I10 Essential (primary) hypertension; E11.9 Type 2 diabetes mellitus without complications; S22.49XA Multiple fractures of ribs, unspecified side, initial encounter for closed fracture; Z79.4 Long term (current) use of insulin
CPT/HCPCS: 99283

== ENCOUNTER 2018-09-12 15:08 | Outpatient (CLI) | payer MEDICARE, OTHER ==
[2018-09-12 15:25] LABS: HGB - HEMOGLOBIN 10.2 g/dL (14.0-18.0); MEAN CORPUSCULAR HEMOGLOBIN 27.1 pg (27.0-31.0); MEAN CORPUSCULAR HGB CONC 33.2 g/dL (32.0-36.0); MEAN CORPUSCULAR VOLUME 81.7 fL (80.0-94.0); MEAN PLATELET VOLUME 7.3 fL (7.4-11.4); RED BLOOD COUNT 3.75 10^6/uL (4.70-6.10); RED CELL DISTRIBUTION WIDTH 15.7 % (12.0-15.0); WHITE BLOOD COUNT 10.6 x10^3/uL (4.8-10.8)
[2018-09-12 15:37] LABS: CALCIUM 8.4 mg/dL (8.5-10.3); CREATININE 2.2 mg/dL (0.6-1.2)
== END 2018-09-12 15:09 | disposition home or self-care (01) ==
LOC: LAB 15:08
PROVIDERS: ATTEND Urology
DX: N05.9 Unspecified nephritic syndrome with unspecified morphologic changes (principal); D70.9 Neutropenia, unspecified; D63.1 Anemia in chronic kidney disease; R80.9 Proteinuria, unspecified
CPT/HCPCS: 36415; 80048; 82570; 85027

== ENCOUNTER 2018-11-06 09:31 | Outpatient (CLI) | payer MEDICARE, OTHER ==
[2018-11-06 17:59] LABS: HB2 TOTAL 10.6 g/dL; HEMOGLOBIN A1C 0.83 g/dL; HEMOGLOBIN A1C % 9.3 % (4.6-6.2)
[2018-11-06 18:06] LABS: ALBUMIN 3.5 g/dL (3.2-5.5); ALBUMIN/GLOBULIN RATIO 1.2 (1.0-2.2); ALKALINE PHOSPHATASE 107 IU/L (42-121); ALT ALANINE AMINOTRANSFERASE 26 IU/L (10-60); AST ASPARTATE AMINOTRANSFERASE 22 IU/L (10-42); BILIRUBIN,TOTAL 0.7 mg/dL (0.2-1.0); BUN - BLOOD UREA NITROGEN 67 mg/dL (6-20); CALCIUM 8.9 mg/dL (8.5-10.3); CARBON DIOXIDE - CO2 25 mmol/L (21-32); CHLORIDE 103 mmol/L (101-111); CHOL/HDL RATIO 3.2 (<5.0); CHOLESTEROL 71 mg/dL; CREATININE 2.4 mg/dL (0.6-1.2); GFR - MDRD 27 (>89); GLUCOSE 122 mg/dL (70-100); HDL CHOLESTEROL 22 mg/dL; LDL CHOLESTEROL,CALCULATED 36 mg/dL; LDL/HDL RATIO 1.6 (<3.6); SODIUM 137 mmol/L (135-145); TOTAL PROTEIN 6.5 g/dL (6.7-8.2); VLDL CHOLESTEROL 13 mg/dL
== END 2018-11-06 09:32 | disposition home or self-care (01) ==
LOC: LAB.S 09:31
PROVIDERS: ATTEND Internal Medicine
DX: E78.00 Pure hypercholesterolemia, unspecified (principal); E11.9 Type 2 diabetes mellitus without complications
CPT/HCPCS: 36415; 80053; 80061; 83036; 83721

== ENCOUNTER 2018-11-27 15:42 | Outpatient (CLI) | payer MEDICARE, OTHER ==
[2018-11-27 16:03] LABS: HGB - HEMOGLOBIN 9.6 g/dL (14.0-18.0); MEAN CORPUSCULAR HEMOGLOBIN 28.2 pg (27.0-31.0); MEAN CORPUSCULAR HGB CONC 31.4 g/dL (32.0-36.0); MEAN CORPUSCULAR VOLUME 89.7 fL (80.0-94.0); MEAN PLATELET VOLUME 10.2 fL (7.4-11.4); RED BLOOD COUNT 3.41 10^6/uL (4.70-6.10); RED CELL DISTRIBUTION WIDTH 13.9 % (12.0-15.0); WHITE BLOOD COUNT 11.6 x10^3/uL (4.8-10.8)
[2018-11-27 16:18] LABS: CALCIUM 8.7 mg/dL (8.5-10.3); CREATININE 2.3 mg/dL (0.6-1.2)
[2018-11-27 16:34] LABS: FERRITIN 179.4 ng/mL (23.9-336.2)
[2018-11-27 16:38] LABS: FOLATE 7.04 ng/mL (5.90 - >24.8)
== END 2018-11-27 15:43 | disposition home or self-care (01) ==
LOC: LAB 15:42
PROVIDERS: ATTEND Internal Medicine Nephrology
DX: N05.9 Unspecified nephritic syndrome with unspecified morphologic changes (principal); I50.32 Chronic diastolic (congestive) heart failure; D50.0 Iron deficiency anemia secondary to blood loss (chronic); D63.1 Anemia in chronic kidney disease; D70.9 Neutropenia, unspecified
CPT/HCPCS: 36415; 80048; 82607; 82728; 82746; 83540; 83880; 84466; 85027

== ENCOUNTER 2019-01-22 14:42 | Outpatient (CLI) | payer MEDICARE, OTHER ==
[2019-01-22 15:05] LABS: BASOPHILS # (AUTO) 0.1 10^3/uL (0.0-0.1); BASOPHILS % (AUTO) 0.7 %; EOSINOPHILS # (AUTO) 0.2 10^3/uL (0.0-0.7); EOSINOPHILS % (AUTO) 1.4 %; HGB - HEMOGLOBIN 11.5 g/dL (14.0-18.0); LYMPHOCYTES # (AUTO) 1.5 10^3/uL (1.5-3.5); LYMPHOCYTES % (AUTO) 12.1 %; MEAN CORPUSCULAR HEMOGLOBIN 27.5 pg (27.0-31.0); MEAN CORPUSCULAR HGB CONC 31.3 g/dL (32.0-36.0); MEAN PLATELET VOLUME 10.9 fL (7.4-11.4); MONOCYTES # (AUTO) 0.7 10^3/uL (0.0-1.0); MONOCYTES % (AUTO) 5.8 %; NEUTROPHILS # (AUTO) 9.6 10^3/uL (1.5-6.6); NEUTROPHILS % (AUTO) 79.4 %; PLT - PLATELET COUNT 255 10^3/uL (130-450); RED BLOOD COUNT 4.18 10^6/uL (4.70-6.10); RED CELL DISTRIBUTION WIDTH 13.1 % (12.0-15.0)
[2019-01-22 15:19] LABS: CALCIUM 8.5 mg/dL (8.5-10.3); CREATININE 2.5 mg/dL (0.6-1.2)
== END 2019-01-22 14:43 | disposition home or self-care (01) ==
LOC: LAB 14:42
PROVIDERS: ATTEND Internal Medicine Nephrology
DX: N05.9 Unspecified nephritic syndrome with unspecified morphologic changes (principal); I50.32 Chronic diastolic (congestive) heart failure; D70.9 Neutropenia, unspecified
CPT/HCPCS: 36415; 80048; 83880; 85025

== ENCOUNTER 2019-03-11 15:38 | Outpatient (CLI) | payer MEDICARE, OTHER ==
[2019-03-11 17:41] LABS: HB2 TOTAL 11.1 g/dL; HEMOGLOBIN A1C 1.07 g/dL
== END 2019-03-11 15:39 | disposition home or self-care (01) ==
LOC: LAB 15:38
PROVIDERS: ATTEND Internal Medicine
DX: E11.65 Type 2 diabetes mellitus with hyperglycemia (principal)
CPT/HCPCS: 36415; 83036

== ENCOUNTER 2019-03-23 14:37 | Outpatient (CLI) | payer MEDICARE, OTHER ==
[2019-03-23 15:25] LABS: CALCIUM 8.7 mg/dL (8.5-10.3); CREATININE 2.8 mg/dL (0.6-1.2); PHOSPHORUS 4.1 mg/dL (2.5-4.6)
== END 2019-03-23 14:38 | disposition home or self-care (01) ==
LOC: LAB 14:37
PROVIDERS: ATTEND Internal Medicine Nephrology
DX: N05.9 Unspecified nephritic syndrome with unspecified morphologic changes (principal); N18.9 Chronic kidney disease, unspecified; I50.32 Chronic diastolic (congestive) heart failure; E83.30 Disorder of phosphorus metabolism, unspecified; N25.81 Secondary hyperparathyroidism of renal origin
CPT/HCPCS: 36415; 80048; 83880; 83970; 84100

== ENCOUNTER 2019-06-04 15:50 | Emergency (ER) | payer MEDICARE, OTHER ==
[2019-06-04 16:07] VITALS: BP 155/68
[2019-06-04] MEDS ORDERED: cephALEXin 250 MG CAPSULE PO STA (16:26)
--- NOTE | 2019-06-04 16:26 | ED Physician Documentation ---
PD HPI LOWER EXT INJURY - Stated complaint Stated Complaint: L TOE LAC - Chief complaint Chief Complaint: Laceration - History obtained from History obtained from: Patient (69-year-old gentleman with uncontrolled diabetes snipped a piece of skin while trimming his toenails today. He is up-to-date on tetanus. He has no pain. Bleeding was profuse but now better.) Review of Systems Constitutional: reports: Reviewed and negative Throat: reports: Reviewed and negative Cardiac: reports: Reviewed and negative PD PAST MEDICAL HISTORY - Past Medical History Cardiovascular: Congestive heart failure, Hypertension, High cholesterol, [place] Respiratory: Sleep apnea Neuro: None Endocrine/Autoimmune: Type 2 diabetes GI: GERD : Renal insuffiency HEENT: Other Psych: Depression Musculoskeletal: None Derm: None - Past Surgical History Past Surgical History: Yes Cardiovascular: Coronary stent HEENT: Cataracts - Present Medications Home Medications: Ambulatory Orders Medication Instructions Recorded Confirmed Insulin Glargine [Lantus Solostar] 40 unit SUBQ QPM 03/10/14 05/25/19 Aspirin 81 mg PO DAILY 04/20/16 05/25/19 Atorvastatin Calcium 80 mg PO DAILY 04/20/16 05/25/19 Carvedilol 25 mg PO BID 05/31/16 05/25/19 Insulin Lispro [Humalog] 0 - 20 units SQ TIDWM 05/31/16 05/25/19 Isosorbide Dinitrate [Isordil] 40 mg PO TID 08/23/18 05/25/19 Pantoprazole [Protonix] 40 mg PO DAILY 08/23/18 05/25/19 Sertraline [Zoloft] 100 mg PO DAILY 08/23/18 05/25/19 Spironolactone 25 mg PO DAILY 08/23/18 05/25/19 hydrALAZINE [Apresoline] 25 mg PO QID 08/23/18 05/25/19 Ferrous Sulfate 325 mg PO DAILY 05/25/19 05/25/19 Cephalexin [Keflex] 500 mg PO Q6H #10 capsule 06/04/19 - Allergies Allergies/Adverse Reactions: Allergies Allergy/AdvReac Type Severity Reaction Status Date / Time No Known Drug Allergies Allergy Verified 08/31/18 16:05 - Social History Does the pt smoke?: No Smoking Status: Never smoker Does the pt drink ETOH?: No Does the pt have substance abuse?: No - Immunizations Immunizations are current?: Yes - POLST Patient has POLST: No PD ED PE NORMAL - Vitals Vital signs reviewed: Yes - General General: Alert and oriented X 3, No acute distress - Extremities Extremities: Other (He took a chunk of skin off the tip of his little toe on the left, it measured about 5 x 2 mm.) - Neuro Neuro: Alert and oriented X 3, Normal speech Results - Vitals Vitals: Vital Signs - 24 hr 06/04/19 15:57 Temperature 36 C L Heart Rate 60 Respiratory 18 Rate Blood Pressure 155/68 H O2 Saturation 99 Oxygen O2 Source Room air Procedures - General procedure General procedure: To stop the bleeding the wound was first irrigated thoroughly with sterile saline and then covered with Dermabond and wound care discussions were had. He is an uncontrolled diabetic so he was placed on Keflex prophylactically. Departure - Departure Disposition: 01 Home, Self Care Clinical Impression: Avulsion of skin Condition: Good Record reviewed to determine appropriate education?: Yes Instructions: ED Wound Care Prescriptions: Cephalexin [Keflex] 500 mg PO Q6H #10 capsule Comments: Prescription was sent electronically to [facility] in [place]. Keep an eye on it, return for signs of infection including redness, swelling, drainage, increased pain, fever.
== END 2019-06-04 16:45 | disposition home or self-care (01) ==
LOC: ED 15:50
DX: S91.105A Unspecified open wound of left lesser toe(s) without damage to nail, initial encounter (principal); W27.8XXA Contact with other nonpowered hand tool, initial encounter; Y93.E8 Activity, other personal hygiene; E11.9 Type 2 diabetes mellitus without complications; Z79.4 Long term (current) use of insulin; I10 Essential (primary) hypertension; Z79.82 Long term (current) use of aspirin
CPT/HCPCS: 99282; 99283; A9270

== ENCOUNTER 2019-10-15 15:01 | Outpatient (CLI) | payer MEDICARE, OTHER ==
[2019-10-15 15:30] LABS: HGB - HEMOGLOBIN 10.2 g/dL (14.0-18.0); MEAN CORPUSCULAR HEMOGLOBIN 27.9 pg (27.0-31.0); MEAN CORPUSCULAR HGB CONC 32.3 g/dL (32.0-36.0); MEAN CORPUSCULAR VOLUME 86.3 fL (80.0-94.0); MEAN PLATELET VOLUME 9.5 fL (7.4-11.4); RED BLOOD COUNT 3.66 10^6/uL (4.70-6.10); RED CELL DISTRIBUTION WIDTH 13.2 % (12.0-15.0); WHITE BLOOD COUNT 13.1 x10^3/uL (4.8-10.8)
[2019-10-15 15:43] LABS: CALCIUM 8.2 mg/dL (8.5-10.3); CREATININE 2.8 mg/dL (0.6-1.2)
== END 2019-10-15 15:02 | disposition home or self-care (01) ==
LOC: LAB 15:01
PROVIDERS: ATTEND Internal Medicine Nephrology
DX: N05.9 Unspecified nephritic syndrome with unspecified morphologic changes (principal); D70.9 Neutropenia, unspecified; D63.1 Anemia in chronic kidney disease; N25.81 Secondary hyperparathyroidism of renal origin; I50.32 Chronic diastolic (congestive) heart failure
CPT/HCPCS: 36415; 80048; 83880; 83970; 85027

== ENCOUNTER 2020-01-04 11:45 | Emergency (ER) | payer MEDICARE, OTHER ==
--- NOTE | 2020-01-04 12:48 | ED Physician Documentation ---
PD HPI LOWER EXT INJURY - Stated complaint Stated Complaint: L HEAL PX/L KNEE PX - Chief complaint Chief Complaint: Ext Problem - History obtained from History obtained from: Patient - History of Present Illness PD HPI LOW EXT INJURY LOCATION: Left, Knee, Ankle (twisted ankle and fell, landed onto left anteromedial knee. Pain in both joints.) Type of injury: Fall, Twist Timing - onset: How many days ago (2) Timing - duration: Days (2) Timing - details: Abrupt onset, Still present Worsened by: Moving, Palpating, Other (walking) Associated symptoms: Swelling (left lateral ankle.). No: Weakness, Numbness Contributing factors: No: Anticoagulated Similar symptoms before: Has not had sx before Review of Systems Constitutional: denies: Fever, Chills Nose: denies: Rhinorrhea / runny nose, Congestion Throat: denies: Sore throat Cardiac: denies: Chest pain / pressure Respiratory: denies: Cough GI: denies: Abdominal Pain, Nausea, Vomiting Skin: denies: Abrasion (s), Laceration (s) Neurologic: denies: Focal weakness, Numbness PD PAST MEDICAL HISTORY - Past Medical History Cardiovascular: Congestive heart failure, Hypertension, High cholesterol, [place] Respiratory: Sleep apnea Neuro: None Endocrine/Autoimmune: Type 2 diabetes GI: GERD : Renal insuffiency HEENT: Other Psych: Depression Musculoskeletal: None Derm: None - Past Surgical History Past Surgical History: Yes Cardiovascular: Coronary stent HEENT: Cataracts - Present Medications Home Medications: Ambulatory Orders Medication Instructions Recorded Confirmed Insulin Glargine [Lantus Solostar] 40 unit SUBQ QPM 03/10/14 05/25/19 Aspirin 81 mg PO DAILY 04/20/16 05/25/19 Atorvastatin Calcium 80 mg PO DAILY 04/20/16 05/25/19 Carvedilol 25 mg PO BID 05/31/16 05/25/19 Insulin Lispro [Humalog] 0 - 20 units SQ TIDWM 05/31/16 05/25/19 Isosorbide Dinitrate [Isordil] 40 mg PO TID 08/23/18 05/25/19 Pantoprazole [Protonix] 40 mg PO DAILY 08/23/18 05/25/19 Sertraline [Zoloft] 100 mg PO DAILY 05/04/19 02/03/20 Spironolactone 25 mg PO DAILY 08/23/18 05/25/19 hydrALAZINE [Apresoline] 25 mg PO QID 08/23/18 05/25/19 Ferrous Sulfate 325 mg PO DAILY 05/25/19 05/25/19 Cephalexin [Keflex] 500 mg PO Q6H #10 capsule 06/04/19 Hydrocodone/Acetaminophen 1 each PO Q6H PRN #15 tablet 01/04/20 [Hydrocodone-Acetamin 5-325 mg] Naproxen 375 mg PO TID #14 tablet 01/04/20 - Allergies Allergies/Adverse Reactions: Allergies Allergy/AdvReac Type Severity Reaction Status Date / Time No Known Drug Allergies Allergy Verified 01/04/20 12:08 - Social History Does the pt smoke?: No Smoking Status: Never smoker Does the pt drink ETOH?: No Does the pt have substance abuse?: No - Immunizations Immunizations are current?: Yes - POLST Patient has POLST: No PD ED PE NORMAL - Vitals Vital signs reviewed: Yes - General General: Alert and oriented X 3, No acute distress, Well developed/nourished - Derm Derm: Normal color, Warm and dry - Extremities Extremities: No edema, No calf tenderness / cord, Other (left knee with some tenderness anteromedially without effusion. Local mild swelling. No noted bruising. Left ankle with swelling and tenderness posterolateral without noted focal bony tenderness. Achilles not tender. ) - Neuro Neuro: Alert and oriented X 3, No motor deficit, No sensory deficit, Normal speech Results - Vitals Vitals: Vital Signs - 24 hr 01/04/20 01/04/20 12:05 14:27 Temperature 36.8 C 36.7 C Heart Rate 62 55 L Respiratory 16 16 Rate Blood Pressure 130/55 L 173/69 H O2 Saturation 100 98 Oxygen O2 Source Room air - Rads (name of study) left knee Radiology: Prelim report reviewed (tricompartment aerthritis. No fracture. ), See rad report left ankle Radiology: Prelim report reviewed (no fractures.), See rad report PD MEDICAL DECISION MAKING - ED course Complexity details: considered differential (sprain versus small fracture; can get xray. ), d/w patient Departure - Departure Disposition: 01 Home, Self Care Clinical Impression: Left ankle sprain Qualifiers: Encounter type: initial encounter Involved ligament of ankle: unspecified ligament Qualified Code(s): S93.402A - Sprain of unspecified ligament of left ankle, initial encounter Knee contusion Qualifiers: Encounter type: initial encounter Laterality: left Qualified Code(s): S80.02XA - Contusion of left knee, initial encounter Condition: Stable Record reviewed to determine appropriate education?: Yes Instructions: ED Sprain Ankle W X Ray Follow-Up: NAEEM HARTMANN PA-C [Primary Care Provider] - Prescriptions: Hydrocodone/Acetaminophen [Hydrocodone-Acetamin 5-325 mg] 1 each PO Q6H PRN #15 tablet PRN Reason: Pain Naproxen 375 mg PO TID #14 tablet Comments: Your x-rays appear normal without any fractures. It sounds like injury of the soft tissue of the ligaments and muscle with a going up the side of the leg. There could be some nerve irritation as well. Use the ankle brace when up and around to support movement of the ankle. Anti-inflammatories twice daily with food for a week or so. Add Tylenol or pain medicine if needed for the pains. I would anticipate improvement over the next several days to a week. Recheck if not well improved in that timeframe. Discharge Date/Time: 01/04/20 14:34
[2020-01-04] MEDS ORDERED: HYDROcod/ACETAM 5/325 MG TABLET PO STA (13:07)
--- NOTE | 2020-01-04 13:52 | XRAY Report ---
PROCEDURE: Knee 3 View LT INDICATIONS: ankle twist and then fall to knee TECHNIQUE: 3 views of the left knee(s) were acquired. COMPARISON: None. FINDINGS: Bones: No fractures or dislocations. Moderate tricompartmental osteoarthritis is seen with joint spa ce narrowing, subchondral sclerosis and marginal osteophyte formation. No significant patellar sublux ation. No suspicious bony lesions. Soft tissues: Small suprapatellar joint effusion is seen. Vascular calcifications are noted in chief of police ior left knee. IMPRESSION: No acute left knee fracture or dislocation. Moderate tricompartmental osteoarthritis and small joint effusion. Reviewed by: Rakesh Duarte MD on 01/04/2020 1:50 PM PDT Approved by: Rakesh Duarte MD on 01/04/2020 1:50 PM PDT Station ID: [id number]
--- NOTE | 2020-01-04 14:01 | XRAY Report ---
PROCEDURE: Ankle 3 View LT INDICATIONS: rolled ankle few days ago; still hurting TECHNIQUE: 3 views of the ankle were acquired. COMPARISON: None FINDINGS: Bones: No fractures or dislocations. Ankle mortise is normally aligned. Well-defined plantar calca dorys enthesophyte is seen. No suspicious bony lesions. Soft tissues: No tibiotalar joint effusion. Achilles tendon appears normal. Vascular calcification s around ankle joint is seen. IMPRESSION: No acute ankle fracture or dislocation. Mild ankle soft tissue swelling. Reviewed by: Rakesh Duarte MD on 01/04/2020 2:00 PM PDT Approved by: Rakesh Duarte MD on 01/04/2020 2:00 PM PDT Station ID: [id number]
[2020-01-04 14:32] VITALS: BP 173/69
== END 2020-01-04 14:34 | disposition home or self-care (01) ==
LOC: ED 11:45
DX: S93.402A Sprain of unspecified ligament of left ankle, initial encounter (principal); S80.02XA Contusion of left knee, initial encounter; W19.XXXA Unspecified fall, initial encounter; X50.1XXA Overexertion from prolonged static or awkward postures, initial encounter; M25.462 Effusion, left knee; M17.12 Unilateral primary osteoarthritis, left knee; Z79.82 Long term (current) use of aspirin; I11.0 Hypertensive heart disease with heart failure; I50.9 Heart failure, unspecified; I13.0 Hypertensive heart and chronic kidney disease with heart failure and stage 1 through stage 4 chronic kidney disease, or unspecified chronic kidney disease; N18.9 Chronic kidney disease, unspecified; Z95.5 Presence of coronary angioplasty implant and graft; E11.22 Type 2 diabetes mellitus with diabetic chronic kidney disease; Z79.4 Long term (current) use of insulin
CPT/HCPCS: 73562; 73610; 99283; A9270

== ENCOUNTER 2020-02-08 16:47 | Outpatient (CLI) | payer MEDICARE, OTHER ==
[2020-02-08 17:14] LABS: BASOPHILS # (AUTO) 0.1 10^3/uL (0.0-0.1); BASOPHILS % (AUTO) 0.8 %; EOSINOPHILS # (AUTO) 0.4 10^3/uL (0.0-0.7); EOSINOPHILS % (AUTO) 2.6 %; HGB - HEMOGLOBIN 11.3 g/dL (14.0-18.0); LYMPHOCYTES % (AUTO) 13.7 %; MEAN CORPUSCULAR HEMOGLOBIN 27.8 pg (27.0-31.0); MEAN CORPUSCULAR HGB CONC 32.2 g/dL (32.0-36.0); MEAN CORPUSCULAR VOLUME 86.5 fL (80.0-94.0); MEAN PLATELET VOLUME 10.5 fL (7.4-11.4); MONOCYTES # (AUTO) 0.8 10^3/uL (0.0-1.0); MONOCYTES % (AUTO) 5.6 %; NEUTROPHILS # (AUTO) 11.3 10^3/uL (1.5-6.6); NEUTROPHILS % (AUTO) 76.6 %; PLT - PLATELET COUNT 283 10^3/uL (130-450); RED BLOOD COUNT 4.06 10^6/uL (4.70-6.10); RED CELL DISTRIBUTION WIDTH 13.4 % (12.0-15.0); WHITE BLOOD COUNT 14.7 x10^3/uL (4.8-10.8)
[2020-02-08 17:36] LABS: CALCIUM 8.9 mg/dL (8.5-10.3); CREATININE 2.4 mg/dL (0.6-1.2)
[2020-02-08 17:38] LABS: FERRITIN 215.4 ng/mL (23.9-336.2)
== END 2020-02-08 16:48 | disposition home or self-care (01) ==
LOC: LAB 16:47
PROVIDERS: ATTEND Internal Medicine Nephrology
DX: D70.9 Neutropenia, unspecified (principal); D63.1 Anemia in chronic kidney disease; D50.0 Iron deficiency anemia secondary to blood loss (chronic); N05.9 Unspecified nephritic syndrome with unspecified morphologic changes; N25.81 Secondary hyperparathyroidism of renal origin
CPT/HCPCS: 36415; 80048; 82728; 83540; 83970; 84466; 85025

== ENCOUNTER 2020-04-15 17:16 | Outpatient (CLI) | payer MEDICARE, OTHER | END 2020-04-15 17:17 | disposition critical access hospital (66) | LOC: EMS 17:16 | PROVIDERS: ATTEND Surgery | DX: S49.92XA Unspecified injury of left shoulder and upper arm, initial encounter (principal); W01.0XXA Fall on same level from slipping, tripping and stumbling without subsequent striking against object, initial encounter; Y93.89 Activity, other specified; Y92.009 Unspecified place in unspecified non-institutional (private) residence as the place of occurrence of the external cause | CPT/HCPCS: A0425; A0427 ==

== ENCOUNTER 2020-04-15 17:44 | Emergency (ER) | payer MEDICARE, OTHER ==
--- NOTE | 2020-04-15 17:58 | ED Physician Documentation ---
History of Present Illness - Stated complaint Stated Complaint: L SHOULDER PX - History obtained from History obtained from: Patient - Additonal information Additional information: 70-year-old male was brought into the emergency department for evaluation of left anterior shoulder pain. This gentleman was attempting to attach a small trailer to the ball hitch of a garden tractor when he lost his balance falling forward striking his right arm. He believes that he braced himself with his arms. He did not lose consciousness. He is not anticoagulated. No history of previous injury to this left shoulder. pt denies CP, abdomianl, pack, hip or leg pain. no e/o facial injury or trauma. alert, neuro intact Past medical history includes hypertension diabetes hyperlipidemia. Non-smoker. Review of Systems Constitutional: reports: Reviewed and negative Eyes: reports: Reviewed and negative Ears: reports: Reviewed and negative Nose: reports: Reviewed and negative Throat: reports: Reviewed and negative Cardiac: reports: Reviewed and negative Respiratory: reports: Reviewed and negative GI: reports: Reviewed and negative Musculoskeletal: reports: Joint pain (left shoulder) PD PAST MEDICAL HISTORY - Past Medical History Cardiovascular: Congestive heart failure, Hypertension, High cholesterol, [place] Respiratory: Sleep apnea Neuro: None Endocrine/Autoimmune: Type 2 diabetes GI: GERD : Renal insuffiency HEENT: Other Psych: Depression Musculoskeletal: None Derm: None - Past Surgical History Past Surgical History: Yes Cardiovascular: Coronary stent HEENT: Cataracts - Present Medications Home Medications: Ambulatory Orders Medication Instructions Recorded Confirmed Insulin Glargine [Lantus Solostar] 40 unit SUBQ QPM 03/10/14 04/15/20 Aspirin 81 mg PO DAILY 04/20/16 04/15/20 Atorvastatin Calcium 80 mg PO DAILY 04/20/16 04/15/20 Carvedilol 25 mg PO BID 05/31/16 04/15/20 Insulin Lispro [Humalog] 0 - 20 units SQ TIDWM 05/31/16 04/15/20 Pantoprazole [Protonix] 40 mg PO DAILY 08/23/18 04/15/20 Sertraline [Zoloft] 100 mg PO DAILY 08/23/18 04/15/20 Spironolactone 25 mg PO DAILY 08/23/18 04/15/20 Ferrous Sulfate 325 mg PO DAILY 05/25/19 04/15/20 Hydralazine HCl 100 mg TID 04/15/20 04/15/20 Hydrocodone/Acetaminophen [[place] 1 each PO BID PRN #15 tablet 04/15/20 5-325 Tablet] Torsemide 40 mg PO DAILY 04/15/20 04/15/20 - Allergies Allergies/Adverse Reactions: Allergies Allergy/AdvReac Type Severity Reaction Status Date / Time No Known Drug Allergies Allergy Verified 04/15/20 18:15 - Social History Does the pt smoke?: No Smoking Status: Never smoker Does the pt drink ETOH?: No Does the pt have substance abuse?: No - Immunizations Immunizations are current?: Yes - POLST Patient has POLST: No PD ED PE EXPANDED - General General: Alert, No acute distress, Well developed/nourished - Extremities Extremities: Left shoulder (Tenderness of the proximal left shoulder and AC joint without swelling or erythema. Though painful patient is able to fully abduct and abduct the arm. He has normal extension of the arm forward as well. 2+ distal radial pulse) Results - Vitals Vitals: Vital Signs - 24 hr 04/15/20 17:45 Temperature 37 C Heart Rate 56 L Respiratory 16 Rate Blood Pressure 165/78 H O2 Saturation 97 Oxygen O2 Source Room air - Rads (name of study) left shoulder Radiology: Final report received (Subtle lucency through the glenoid rim possibly representing a nondisplaced fracture. Otherwise no other fractures identified. Moderate hypertrophic osteoarthritic changes of the left AC joint) PD MEDICAL DECISION MAKING - ED course Complexity details: reviewed results, re-evaluated patient, considered differential, d/w patient ED course: 70-year-old male was brought into the emergency department for evaluation of acute left shoulder pain. He was lifting a trailer to put on the ball hitch of his tractor when he lost balance and fell forward onto outstretched arm. He did not strike his face. He had immediate pain in the left shoulder joint. Though uncomfortable he was able to fully range the shoulder for me. X-ray suggested possible glenoid fracture that is nondisplaced. This gentleman will be placed into an arm sling and referred to orthopedics for follow-up. I did recommend that he do range of motion exercises to prevent an encapsulated shoulder. emergent return precautions discussed Departure - Departure Disposition: 01 Home, Self Care Clinical Impression: Glenoid fracture of shoulder Qualifiers: Encounter type: initial encounter Fracture type: closed Laterality: left Qualified Code(s): S42.142A - Displaced fracture of glenoid cavity of scapula, left shoulder, initial encounter for closed fracture Condition: Stable Record reviewed to determine appropriate education?: Yes Instructions: ED Torn Rotator Cuff Follow-Up: [facility] [Provider Group] - Within 1 week Prescriptions: Hydrocodone/Acetaminophen [[place] 5-325 Tablet] 1 each PO BID PRN #15 tablet PRN Reason: Pain Comments: Nathan I hope that you are feeling better soon and I am sorry that he had your fall today. The x-ray of your shoulder suggest that you may have a very small nondisplaced glenoid fracture. This is the type of fracture that is typically managed nonoperatively with pain control and an arm sling. please call orthopedics on Saturday to arrange follow up. I would like you to take Tylenol or ibuprofen [id number] for pain. For more severe pain I have prescribed a limited amount of hydrocodone. Please use caution when using this it may make you sleepy, dizzy and unable to drive.
[2020-04-15] MEDS ORDERED: HYDROmorphone 1 MG/ML CARPUJECT IM STA (18:14)
--- NOTE | 2020-04-15 18:25 | XRAY Report ---
PROCEDURE: Shoulder 2 View LT INDICATIONS: shoulder inj TECHNIQUE: 2 views of the shoulder were acquired. COMPARISON: None. FINDINGS: Bones: Study limited secondary to patient positioning. There is a subtle lucency through the glenoid rim possibly representing a nondisplaced fracture. Moderate degenerative changes of the left acromioc lavicular joint. No suspicious bony lesions. Visualized ribs appear intact. Soft tissues: No suspicious soft tissue calcifications. IMPRESSION: Limited evaluation secondary to patient positioning. Subtle lucency through the glenoid rim possibly representing a nondisplaced fracture. Otherwise, no other fractures identified. Moderate hypertrophic osteoarthritic changes of the left acromioclavicular joint. Reviewed by: Rusty Barrios MD on 04/15/2020 6:23 PM PST Approved by: Rusty Barrios MD on 04/15/2020 6:23 PM PST Station ID: [id number]
[2020-04-15] MEDS ORDERED: HYDROcod/ACET 5/325 Prepack 4 PO STA (18:48)
[2020-04-15 19:28] VITALS: BP 142/80
== END 2020-04-15 19:00 | disposition home or self-care (01) ==
LOC: EDUNIT# → ED 17:44
DX: S42.145A Nondisplaced fracture of glenoid cavity of scapula, left shoulder, initial encounter for closed fracture (principal); W01.0XXA Fall on same level from slipping, tripping and stumbling without subsequent striking against object, initial encounter; Y93.89 Activity, other specified; M19.012 Primary osteoarthritis, left shoulder; I10 Essential (primary) hypertension; E11.9 Type 2 diabetes mellitus without complications; Z79.4 Long term (current) use of insulin; E78.5 Hyperlipidemia, unspecified; Z79.82 Long term (current) use of aspirin
CPT/HCPCS: 73030; 96372; 99283; J1170

== ENCOUNTER 2020-04-21 07:00 | Outpatient (CLI) | payer MEDICARE, OTHER ==
--- NOTE | 2020-04-21 17:34 | XRAY Report ---
PROCEDURE: Shoulder 3 View BILAT INDICATIONS: NONDISPLACED FX OF LEFT SCAPULA TECHNIQUE: 10 views of the shoulder were acquired. COMPARISON: 04/15/2020. FINDINGS: Bones: Bilateral acromioclavicular joint and glenohumeral joint osteoarthritic changes are seen. No g ross fracture or dislocation is seen. No definite scapular fracture is identified. No suspicious bony lesions. Visualized ribs appear intact. Soft tissues: No suspicious soft tissue calcifications. IMPRESSION: Bilateral shoulder joint osteoarthritis. No definite scapular fracture is identified on this study. No shoulder fracture or dislocation. Reviewed by: Rakesh Duarte MD on 04/21/2020 5:33 PM PST Approved by: Rakesh Duarte MD on 04/21/2020 5:33 PM PST Station ID: [id number]
== END 2020-04-21 23:59 | disposition home or self-care (01) ==
LOC: DI.N 07:00
PROVIDERS: ATTEND Orthopaedic Surgery
DX: S42.115A Nondisplaced fracture of body of scapula, left shoulder, initial encounter for closed fracture (principal); M19.012 Primary osteoarthritis, left shoulder; M19.011 Primary osteoarthritis, right shoulder

== ENCOUNTER 2020-06-03 07:00 | Outpatient (CLI) | payer MEDICARE, OTHER ==
[2020-06-03 15:15] LABS: HGB - HEMOGLOBIN 10.7 g/dL (14.0-18.0)
[2020-06-03 15:28] LABS: CALCIUM 8.8 mg/dL (8.5-10.3); CREATININE 2.6 mg/dL (0.6-1.2)
== END 2020-06-03 23:59 | disposition home or self-care (01) ==
LOC: LAB 07:00
PROVIDERS: ATTEND Internal Medicine Nephrology
DX: N05.9 Unspecified nephritic syndrome with unspecified morphologic changes (principal); I50.32 Chronic diastolic (congestive) heart failure; D64.9 Anemia, unspecified; R80.9 Proteinuria, unspecified
CPT/HCPCS: 36415; 80048; 82570; 83880; 84156; 85014; 85018

== ENCOUNTER 2020-11-09 14:56 | Outpatient (CLI) | payer MEDICARE, OTHER ==
[2020-11-09 15:32] LABS: HCT - HEMATOCRIT 34.4 % (42.0-52.0); HGB - HEMOGLOBIN 11.2 g/dL (14.0-18.0)
[2020-11-09 15:44] LABS: CALCIUM 9.1 mg/dL (8.5-10.3); CREATININE 2.4 mg/dL (0.6-1.2); PHOSPHORUS 3.8 mg/dL (2.5-4.6); POTASSIUM 4.5 mmol/L (3.5-5.0)
[2020-11-09 15:58] LABS: FERRITIN 339.8 ng/mL (23.9-336.2)
== END 2020-11-09 14:57 | disposition home or self-care (01) ==
LOC: LAB 14:56
PROVIDERS: ATTEND Internal Medicine Nephrology
DX: N05.9 Unspecified nephritic syndrome with unspecified morphologic changes (principal); I50.32 Chronic diastolic (congestive) heart failure; D50.0 Iron deficiency anemia secondary to blood loss (chronic); E83.30 Disorder of phosphorus metabolism, unspecified; N25.81 Secondary hyperparathyroidism of renal origin
CPT/HCPCS: 36415; 80048; 82728; 83540; 83880; 83970; 84100; 84466; 85014; 85018

== ENCOUNTER 2020-11-15 15:54 | Outpatient (CLI) | payer MEDICARE, OTHER ==
[2020-11-15 16:16] LABS: BASOPHILS # (AUTO) 0.1 10^3/uL (0.0-0.1); BASOPHILS % (AUTO) 0.7 %; EOSINOPHILS # (AUTO) 0.4 10^3/uL (0.0-0.7); EOSINOPHILS % (AUTO) 2.8 %; HCT - HEMATOCRIT 31.8 % (42.0-52.0); HGB - HEMOGLOBIN 10.2 g/dL (14.0-18.0); LYMPHOCYTES % (AUTO) 14.9 %; MEAN CORPUSCULAR HEMOGLOBIN 27.7 pg (27.0-31.0); MEAN CORPUSCULAR HGB CONC 32.1 g/dL (32.0-36.0); MEAN CORPUSCULAR VOLUME 86.4 fL (80.0-94.0); MONOCYTES # (AUTO) 0.9 10^3/uL (0.0-1.0); MONOCYTES % (AUTO) 6.6 %; NEUTROPHILS # (AUTO) 9.8 10^3/uL (1.5-6.6); NEUTROPHILS % (AUTO) 74.5 %; PLT - PLATELET COUNT 257 10^3/uL (130-450); RED BLOOD COUNT 3.68 10^6/uL (4.70-6.10); RED CELL DISTRIBUTION WIDTH 13.4 % (12.0-15.0); WHITE BLOOD COUNT 13.2 x10^3/uL (4.8-10.8)
[2020-11-15 16:34] LABS: ALBUMIN 3.5 g/dL (3.2-5.5); BILIRUBIN,TOTAL 0.5 mg/dL (0.2-1.0); CALCIUM 8.7 mg/dL (8.5-10.3); CREATININE 2.8 mg/dL (0.6-1.2); POTASSIUM 4.7 mmol/L (3.5-5.0)
[2020-11-15 20:45] LABS: ESTIMATED AVERAGE GLUCOSE 212 mg/dL (70-100)
== END 2020-11-15 15:55 | disposition home or self-care (01) ==
LOC: LAB 15:54
PROVIDERS: ATTEND Internal Medicine
DX: I13.0 Hypertensive heart and chronic kidney disease with heart failure and stage 1 through stage 4 chronic kidney disease, or unspecified chronic kidney disease (principal); E11.22 Type 2 diabetes mellitus with diabetic chronic kidney disease; N18.4 Chronic kidney disease, stage 4 (severe); I50.9 Heart failure, unspecified; E11.40 Type 2 diabetes mellitus with diabetic neuropathy, unspecified; E11.8 Type 2 diabetes mellitus with unspecified complications
CPT/HCPCS: 36415; 80053; 82306; 83036; 85025

== ENCOUNTER 2020-12-03 15:54 | Outpatient (CLI) | payer MEDICARE, OTHER ==
--- NOTE | 2020-12-09 10:31 | XRAY Report ---
PROCEDURE: Chest 2 View X-Ray INDICATIONS: chronic shortness of breath for one year TECHNIQUE: 2 view(s) of the chest. COMPARISON: May 18, 2013 FINDINGS: Surgical changes and devices: None. Lungs and pleura: No pleural effusions or pneumothorax. Lungs are clear. Mediastinum: Mediastinal contours are normal. Heart size is normal. Bones and chest wall: No suspicious bony abnormalities. Soft tissues appear unremarkable. IMPRESSION: Unremarkable chest x-ray. Reviewed by: Kleber Murillo MD on 12/03/2020 4:57 PM AKDT Approved by: Kleber Murillo MD on 12/03/2020 4:57 PM AKDT Station ID: [id number]
== END 2020-12-03 15:55 | disposition home or self-care (01) ==
LOC: DI 15:54
PROVIDERS: ATTEND Internal Medicine
DX: R06.02 Shortness of breath (principal)
CPT/HCPCS: 36415; 83880

== ENCOUNTER 2021-01-04 10:09 | Outpatient (CLI) | payer MEDICARE, OTHER | END 2021-01-04 10:10 | disposition home or self-care (01) | LOC: DI 10:09 | PROVIDERS: ATTEND Internal Medicine | DX: R06.02 Shortness of breath (principal); I51.7 Cardiomegaly; I42.2 Other hypertrophic cardiomyopathy | CPT/HCPCS: 93306 ==

== ENCOUNTER 2021-04-03 14:36 | Outpatient (CLI) | payer MEDICARE, OTHER ==
[2021-04-03 14:57] LABS: BASOPHILS # (AUTO) 0.1 10^3/uL (0.0-0.1); BASOPHILS % (AUTO) 0.9 %; EOSINOPHILS # (AUTO) 0.5 10^3/uL (0.0-0.7); EOSINOPHILS % (AUTO) 3.8 %; HCT - HEMATOCRIT 31.7 % (42.0-52.0); HGB - HEMOGLOBIN 10.3 g/dL (14.0-18.0); LYMPHOCYTES # (AUTO) 2.4 10^3/uL (1.5-3.5); LYMPHOCYTES % (AUTO) 17.2 %; MEAN CORPUSCULAR HEMOGLOBIN 27.8 pg (27.0-31.0); MEAN CORPUSCULAR HGB CONC 32.5 g/dL (32.0-36.0); MEAN CORPUSCULAR VOLUME 85.4 fL (80.0-94.0); MEAN PLATELET VOLUME 9.1 fL (7.4-11.4); MONOCYTES # (AUTO) 1.1 10^3/uL (0.0-1.0); MONOCYTES % (AUTO) 7.8 %; NEUTROPHILS # (AUTO) 9.6 10^3/uL (1.5-6.6); NEUTROPHILS % (AUTO) 69.6 %; PLT - PLATELET COUNT 292 10^3/uL (130-450); RED BLOOD COUNT 3.71 10^6/uL (4.70-6.10); RED CELL DISTRIBUTION WIDTH 13.8 % (12.0-15.0); WHITE BLOOD COUNT 13.8 x10^3/uL (4.8-10.8)
[2021-04-03 15:06] LABS: ALBUMIN 3.6 g/dL (3.2-5.5); ALBUMIN/GLOBULIN RATIO 1.1 (1.0-2.2); BILIRUBIN,TOTAL 0.6 mg/dL (0.2-1.0); CALCIUM 9.4 mg/dL (8.5-10.3); CREATININE 2.8 mg/dL (0.6-1.2); POTASSIUM 4.3 mmol/L (3.5-5.0)
[2021-04-03 20:02] LABS: ESTIMATED AVERAGE GLUCOSE 237 mg/dL (70-100); HEMOGLOBIN A1c% 9.9 % (4.27-6.07)
== END 2021-04-03 14:37 | disposition home or self-care (01) ==
LOC: LAB 14:36
PROVIDERS: ATTEND Internal Medicine Nephrology
DX: N05.9 Unspecified nephritic syndrome with unspecified morphologic changes (principal); M81.0 Age-related osteoporosis without current pathological fracture; D70.9 Neutropenia, unspecified; N25.0 Renal osteodystrophy; D63.1 Anemia in chronic kidney disease; Z12.5 Encounter for screening for malignant neoplasm of prostate; E11.8 Type 2 diabetes mellitus with unspecified complications
CPT/HCPCS: 36415; 80053; 83036; 85025; G0103; 80048; 84153

== ENCOUNTER 2021-07-05 20:22 | Outpatient (CLI) | payer MEDICARE, OTHER ==
[2021-07-05 20:36] LABS: HCT - HEMATOCRIT 28.3 % (42.0-52.0); HGB - HEMOGLOBIN 9.1 g/dL (14.0-18.0); MEAN CORPUSCULAR HEMOGLOBIN 27.3 pg (27.0-31.0); MEAN CORPUSCULAR HGB CONC 32.2 g/dL (32.0-36.0); MEAN PLATELET VOLUME 10.1 fL (7.4-11.4); RED BLOOD COUNT 3.33 10^6/uL (4.70-6.10); RED CELL DISTRIBUTION WIDTH 13.9 % (12.0-15.0); WHITE BLOOD COUNT 9.1 x10^3/uL (4.8-10.8)
[2021-07-05 21:00] LABS: CALCIUM 9.1 mg/dL (8.5-10.3); PHOSPHORUS 4.3 mg/dL (2.5-4.6); POTASSIUM 4.6 mmol/L (3.5-5.0)
== END 2021-07-05 20:23 | disposition home or self-care (01) ==
LOC: LAB 20:22
PROVIDERS: ATTEND Internal Medicine Nephrology
DX: N05.9 Unspecified nephritic syndrome with unspecified morphologic changes (principal); D70.9 Neutropenia, unspecified; D63.1 Anemia in chronic kidney disease; E83.30 Disorder of phosphorus metabolism, unspecified; N25.81 Secondary hyperparathyroidism of renal origin
CPT/HCPCS: 36415; 80048; 83970; 84100; 85027

== ENCOUNTER 2021-07-19 08:41 | Outpatient (CLI) | payer MEDICARE, OTHER ==
[2021-07-19 15:26] LABS: ALBUMIN 3.7 g/dL (3.2-5.5); ALBUMIN/GLOBULIN RATIO 1.3 (1.0-2.2); BILIRUBIN,TOTAL 0.7 mg/dL (0.2-1.0); CALCIUM 9.4 mg/dL (8.5-10.3); CREATININE 2.7 mg/dL (0.6-1.2); POTASSIUM 4.5 mmol/L (3.5-5.0); TOTAL PROTEIN 6.5 g/dL (6.7-8.2)
[2021-07-19 20:53] LABS: ESTIMATED AVERAGE GLUCOSE 214 mg/dL (70-100); HEMOGLOBIN A1c% 9.1 % (4.27-6.07)
== END 2021-07-19 08:42 | disposition home or self-care (01) ==
LOC: LAB.S 08:41
PROVIDERS: ATTEND Internal Medicine
DX: E11.22 Type 2 diabetes mellitus with diabetic chronic kidney disease (principal); N18.4 Chronic kidney disease, stage 4 (severe); E11.8 Type 2 diabetes mellitus with unspecified complications
CPT/HCPCS: 36415; 80053; 83036

== ENCOUNTER 2021-08-09 15:13 | Outpatient (CLI) | payer MEDICARE, OTHER ==
[2021-08-09 20:11] LABS: HCT - HEMATOCRIT 27.1 % (42.0-52.0); HGB - HEMOGLOBIN 8.7 g/dL (14.0-18.0); MEAN CORPUSCULAR HEMOGLOBIN 27.2 pg (27.0-31.0); MEAN CORPUSCULAR HGB CONC 32.1 g/dL (32.0-36.0); MEAN CORPUSCULAR VOLUME 84.7 fL (80.0-94.0); MEAN PLATELET VOLUME 11.4 fL (7.4-11.4); RED BLOOD COUNT 3.2 10^6/uL (4.70-6.10); RED CELL DISTRIBUTION WIDTH 13.7 % (12.0-15.0); WHITE BLOOD COUNT 9.5 x10^3/uL (4.8-10.8)
[2021-08-09 20:27] LABS: CALCIUM 9.1 mg/dL (8.5-10.3); CREATININE 2.8 mg/dL (0.6-1.2); PHOSPHORUS 4.2 mg/dL (2.5-4.6); POTASSIUM 4.7 mmol/L (3.5-5.0)
== END 2021-08-09 15:14 | disposition home or self-care (01) ==
LOC: LAB.S 15:13
PROVIDERS: ATTEND Internal Medicine Nephrology
DX: N05.9 Unspecified nephritic syndrome with unspecified morphologic changes (principal); D70.9 Neutropenia, unspecified; E83.30 Disorder of phosphorus metabolism, unspecified; N25.81 Secondary hyperparathyroidism of renal origin
CPT/HCPCS: 36415; 80048; 83970; 84100; 85027

== ENCOUNTER 2021-08-10 15:57 | Emergency (ER) | payer MEDICARE, OTHER ==
[2021-08-10 16:07] VITALS: BP 173/85
--- NOTE | 2021-08-10 16:17 | ED Physician Documentation ---
History of Present Illness - Stated complaint Stated Complaint: LEFT SHOULDER PAIN - Chief complaint Chief Complaint: Ext Problem - Additonal information Additional information: 71-year-old male presents emergency department for evaluation of a swelling of his left anterior shoulder. Began about 3 months ago after a fall. Reports a history of balance problems for which she is had recurrent falls and is now using a walker. However after a fall about 3 months ago he developed a swelling in the anterior shoulder that has failed to resolve. He does have some tenderness in his shoulder especially with abduction. No improvement of symp toms with Motrin or Tylenol. Has not been seen by primary provider for this. Review of Systems Constitutional: reports: Reviewed and negative Throat: reports: Reviewed and negative Cardiac: reports: Reviewed and negative Respiratory: reports: Reviewed and negative GI: reports: Reviewed and negative : reports: Reviewed and negative Skin: reports: Reviewed and negative Musculoskeletal: reports: Joint pain, Joint swelling PD PAST MEDICAL HISTORY - Past Medical History Cardiovascular: Congestive heart failure, Hypertension, High cholesterol, [place] Respiratory: Sleep apnea Neuro: None Endocrine/Autoimmune: Type 2 diabetes GI: GERD : Renal insuffiency HEENT: Other Psych: Depression Musculoskeletal: None Derm: None - Past Surgical History Past Surgical History: Yes Cardiovascular: Coronary stent HEENT: Cataracts - Present Medications Home Medications: Ambulatory Orders Medication Instructions Recorded Confirmed Insulin Glargine [Lantus Solostar] 40 unit SUBQ QPM 03/10/14 04/15/20 Aspirin 81 mg PO DAILY 04/20/16 04/15/20 Atorvastatin Calcium 80 mg PO DAILY 04/20/16 04/15/20 Carvedilol 25 mg PO BID 05/31/16 04/15/20 Insulin Lispro [Humalog] 0 - 20 units SQ TIDWM 05/31/16 04/15/20 Pantoprazole [Protonix] 40 mg PO DAILY 08/23/18 04/15/20 Sertraline [Zoloft] 100 mg PO DAILY 08/23/18 04/15/20 Spironolactone 25 mg PO DAILY 08/23/18 04/15/20 Ferrous Sulfate 325 mg PO DAILY 05/25/19 04/15/20 Hydralazine HCl 100 mg TID 04/15/20 04/15/20 Hydrocodone/Acetaminophen [[place]lie 1 each PO BID PRN #15 tablet 04/15/20 5-325 Tablet] Torsemide 40 mg PO DAILY 04/15/20 04/15/20 - Allergies Allergies/Adverse Reactions: Allergies Allergy/AdvReac Type Severity Reaction Status Date / Time No Known Drug Allergies Allergy Verified 08/10/21 16:04 - Social History Does the pt smoke?: No Smoking Status: Never smoker Does the pt drink ETOH?: No Does the pt have substance abuse?: No - Immunizations Immunizations are current?: Yes - POLST Patient has POLST: No PD ED PE EXPANDED - Extremities Extremities: Left shoulder (click and pain with abduction. 2+ radial pulse; Palpable fluid fulled 4 cm boggy lump anterior shoulder) Results - Vitals Vitals: Vital Signs - 24 hr 08/10/21 16:05 Temperature 37.0 C Heart Rate 57 L Respiratory 22 Rate Blood Pressure 173/85 H O2 Saturation 99 Oxygen O2 Source Room air - Rads (name of study) left shoulder Radiology: Final report received (Type III AC joint separation. No acute fractures.) Procedures - General procedure General procedure: Left shoulder was prepped with Betadine solution and allowed to dry for 2 minutes. Using sterile technique 20 cc of bloody serous fluid was aspirated from the fluid collection of the left anterior shoulder. Gentle compression and Bishnu wrap was applied to the shoulder PD MEDICAL DECISION MAKING - ED course Complexity details: reviewed results, re-evaluated patient, considered differential, d/w patient ED course: 71-year-old male presents emergency department for evaluation of pain in his left shoulder as well as swelling for a number of months. This follows repeated falls. X-ray does show a type III AC separation but on exam he had a very large fluid collection that was easily palpated as well seen on ultrasound. I did drain approximately 20 mils of fluid in a sterile fashion and sent to the lab to check for infection though given lack of fevers or erythema and the duration of symptoms infection is felt less likely. Clinically this gentleman has an AC joint separation as well as a subacromial bursitis. He does have positive Neer sign and I suspect a rotator cuff tear. He will be referred to orthopedics for follow-up. Did recommend Bishnu wrap and gentle compression of the shoulder to help with the bursitis as well as as needed ibuprofen for analgesia and inflammation. Departure - Departure Disposition: 01 Home, Self Care Clinical Impression: Subacromial bursitis of left shoulder joint AC separation, type 3 Qualifiers: Encounter type: initial encounter Laterality: left Qualified Code(s): S43.102A - Unspecified dislocation of left acromioclavicular joint, initial encounter Condition: Stable Record reviewed to determine appropriate education?: Yes Instructions: ED Bursitis, ED Sprain AC Joint Follow-Up: Joshua Locke MD [Provider Admit Priv/Credential] - Comments: Nathan you are seen today in the emergency department for pain in your left shoulder as well as a fluid collection/swelling. This occurred a number of months ago after you have had repeated falls. The x-ray does not show a shoulder dislocation or fracture though the space between your clavicle and humerus is a little wide. This is called an AC separation. There is no specific treatment for this is simply improves with time. However you have developed what is called subacromial bursitis. This is where the bursal sac within the shoulder joint can get inflamed. This is most likely due to the falls. We did send the fluid that was drained from the sac to the lab to check for infection. We will call you only if the culture is positive but as we discussed at the bedside without any redness or fevers and the duration of your symptoms, infection is felt to be less likely. In order to treat the bursitis I do recommend that you wear a compressive bandage over your shoulder. If you can take ibuprofen once or twice a day with food to help with inflammation. I do suspect that you have a left rotator cuff tear. In order to further manage this, the bursitis and the AC separation it is important that you follow-up with orthopedics. I have given you the phone number of our surgeon though your primary care provider will likely need to make the referral. If at any point you have fevers, uncontrolled vomiting severe or different pain then please return to the ER for second evaluation
--- NOTE | 2021-08-10 16:50 | XRAY Report ---
PROCEDURE: Shoulder 3 View LT INDICATIONS: glf 1 month ago TECHNIQUE: 3 views of the shoulder were acquired. COMPARISON: None. FINDINGS: Bones: No fractures or dislocations. There is flattening deformity along the lateral humeral head w hich may indicate a prior Hill-Sachs fracture. The AC joint distance is at the upper limits of normal . There is slight coracoclavicular distance widening measuring up to 15 mm. No suspicious bony lesion s. Visualized ribs appear intact. Soft tissues: There are dystrophic calcifications at, and lateral to the acromioclavicular joint. The re are small dystrophic calcifications lateral to the humeral head. IMPRESSION: 1. Slight AC joint separation and several dystrophic calcifications adjacent to the acromion. This co rresponds to the area of lump. Slight widening of the coracoclavicular distance suggests a type III A C joint separation. 2. No acute fractures. There may be a chronic impaction deformity of the lateral humeral head of a re mote Hill-Sachs fracture. Reviewed by: Agatha Loyola MD on 08/10/2021 4:48 PM PDT Approved by: Agatha Loyola MD on 08/10/2021 4:48 PM PDT Station ID: [id number]
== END 2021-08-10 17:12 | disposition home or self-care (01) ==
LOC: ED 15:57
DX: S43.102A Unspecified dislocation of left acromioclavicular joint, initial encounter (principal); W19.XXXA Unspecified fall, initial encounter; I11.0 Hypertensive heart disease with heart failure; I50.9 Heart failure, unspecified; E11.9 Type 2 diabetes mellitus without complications; Z79.4 Long term (current) use of insulin; Z95.5 Presence of coronary angioplasty implant and graft
CPT/HCPCS: 20610; 87070; 87205; 99283

== ENCOUNTER 2021-08-22 06:00 | Outpatient (CLI) | payer MEDICARE, OTHER ==
--- NOTE | 2021-08-22 17:13 | XRAY Report ---
PROCEDURE: AC Joints INDICATIONS: LEFT SHOULDER PAIN/INJURY TECHNIQUE: 2 views each of both acromioclavicular joints were acquired. COMPARISON: August 10, 2021. FINDINGS: FINDINGS: BONES: No acute, displaced fracture . Redemonstrated calcific density superior to the left acromion with widening of the coracoclavicular i nterval. Mild arthrosis of the right AC joint with superior osteophyte extending from the acromion. SOFT TISSUES: No focal abnormality. Punctate calcific density adjacent to the left humeral head, whic h may reflect rotator cuff calcific tendinopathy. IMPRESSION: 1.No significant interval change. Reviewed by: Walter Billy MD on 08/22/2021 5:12 PM PDT Approved by: Walter Billy MD on 08/22/2021 5:12 PM PDT Station ID: [id number]
== END 2021-08-22 23:59 | disposition home or self-care (01) ==
LOC: DI.WOS 06:00
PROVIDERS: ATTEND Physician Assistant
DX: S43.421D Sprain of right rotator cuff capsule, subsequent encounter (principal)

== ENCOUNTER 2021-09-10 17:10 | Emergency (ER) | payer MEDICARE, OTHER ==
[2021-09-10 17:22] VITALS: BP 207/72
--- NOTE | 2021-09-10 17:58 | ED Physician Documentation ---
History of Present Illness - Stated complaint Stated Complaint: LAC LT INDEX - Chief complaint Chief Complaint: Laceration - History obtained from History obtained from: Patient - History of Present Illness Timing: Today Pain level max: 3 Pain level now: 2 - Additonal information Additional information: 71-year-old male presents to the emergency department with a laceration to the left index finger from a pruning chainsaw. This occurred about 3 hours prior to arrival. Tetanus is up-to-date. 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 Review of Systems Constitutional: denies: Fever, Chills Nose: denies: Rhinorrhea / runny nose, Congestion Respiratory: denies: Cough PD PAST MEDICAL HISTORY - Past Medical History Cardiovascular: Congestive heart failure, Hypertension, High cholesterol, [place] Respiratory: Sleep apnea Neuro: None Endocrine/Autoimmune: Type 2 diabetes GI: GERD : Renal insuffiency HEENT: Other Psych: Depression Musculoskeletal: None Derm: None - Past Surgical History Past Surgical History: Yes Cardiovascular: Coronary stent HEENT: Cataracts - Present Medications Home Medications: Ambulatory Orders Medication Instructions Recorded Confirmed Insulin Glargine [Lantus Solostar] 40 unit SUBQ QPM 03/10/14 04/15/20 Aspirin 81 mg PO DAILY 04/20/16 04/15/20 Atorvastatin Calcium 80 mg PO DAILY 04/20/16 04/15/20 Carvedilol 25 mg PO BID 05/31/16 04/15/20 Insulin Lispro [Humalog] 0 - 20 units SQ TIDWM 05/31/16 04/15/20 Pantoprazole [Protonix] 40 mg PO DAILY 08/23/18 04/15/20 Sertraline [Zoloft] 100 mg PO DAILY 08/23/18 04/15/20 Spironolactone 25 mg PO DAILY 08/23/18 04/15/20 Ferrous Sulfate 325 mg PO DAILY 05/25/19 04/15/20 Hydralazine HCl 100 mg TID 04/15/20 04/15/20 Hydrocodone/Acetaminophen [[place] 1 each PO BID PRN #15 tablet 04/15/20 5-325 Tablet] Torsemide 40 mg PO DAILY 04/15/20 04/15/20 - Allergies Allergies/Adverse Reactions: Allergies Allergy/AdvReac Type Severity Reaction Status Date / Time No Known Drug Allergies Allergy Verified 09/10/21 17:22 - Social History Does the pt smoke?: No Smoking Status: Never smoker Does the pt drink ETOH?: No Does the pt have substance abuse?: No - Immunizations Immunizations are current?: Yes - POLST Patient has POLST: No PD ED PE NORMAL - Vitals Vital signs reviewed: Yes - General General: Alert and oriented X 3, No acute distress - HEENT HEENT: Moist mucous membranes - Derm Derm: Warm and dry - Extremities Extremities: Other (L index finger - Prior distal amputation. small avulsion of skin, superficial. no bone or tendon involvement. NVI.) - Neuro Neuro: Alert and oriented X 3 PD ED PE EXPANDED - Extremities LEONARDO UE/Hands Visual: 1 - laceration Results - Vitals Vitals: Vital Signs - 24 hr 09/10/21 17:17 Temperature 36.3 C L Heart Rate 64 Respiratory 16 Rate Blood Pressure 207/72 H O2 Saturation 98 Oxygen O2 Source Room air Procedures - Laceration (location) L index finger Length in cm: 1 Wound type: Linear, Superficial, Clean Neurovascular status: Sensory intact, Motor intact, Vascular intact Tendon involvement: Tendon intact Wound preparation: Irrigated copiously NS Skin layer closure: Dermabond Other: Patient tolerated well, No complications, Neurovascular intact, Tetanus UTD PD MEDICAL DECISION MAKING - ED course Complexity details: considered differential, d/w patient, d/w family ED course: Patient with a laceration to the left index finger. There is a prior amputation here. Tetanus up-to-date. Small skin avulsion, the skin was flapped back over the area and will be used as a biological dressing. Dermabond applied. Patient counseled regarding signs and symptoms for which I believe and urgent re- evaluation would be necessary. Patient with good understanding of and agreement to plan and is comfortable going home at this time This document was made in part using voice recognition software. While efforts are made to proofread this document, sound alike and grammatical errors may occur. Departure - Departure Disposition: 01 Home, Self Care Clinical Impression: Finger laceration Qualifiers: Encounter type: initial encounter Finger: index finger Damage to nail status: without damage Foreign body presence: without foreign body Laterality: left Qualified Code(s): S61.211A - Laceration without foreign body of left index finger without damage to nail, initial encounter Condition: Good Instructions: ED Laceration Ext Skin Glue Follow-Up: Shantell Zavala ARNP [Primary Care Provider] - Comments: Keep the wound clean. Follow-up with your doctor in 4 to 5 days for a wound check. Do not apply any ointment as this may dissolve the glue. You can use Motrin or Tylenol as needed for any pain at home. Return if you worsen including redness, swelling or drainage from the wound. Discharge Date/Time: 09/10/21 18:52
[2021-09-10] MEDS ORDERED: IBUPROFEN 800 MG TABLET PO STA (18:39)
== END 2021-09-10 18:52 | disposition home or self-care (01) ==
LOC: ED 17:10
DX: S61.211A Laceration without foreign body of left index finger without damage to nail, initial encounter (principal); W29.3XXA Contact with powered garden and outdoor hand tools and machinery, initial encounter; Y93.H2 Activity, gardening and landscaping
CPT/HCPCS: 12001; 99282; A9270

== ENCOUNTER 2021-10-03 16:42 | Outpatient (CLI) | payer MEDICARE, OTHER ==
[2021-10-03 17:01] LABS: HCT - HEMATOCRIT 30.7 % (42.0-52.0); HGB - HEMOGLOBIN 9.9 g/dL (14.0-18.0); MEAN CORPUSCULAR HEMOGLOBIN 27.2 pg (27.0-31.0); MEAN CORPUSCULAR HGB CONC 32.2 g/dL (32.0-36.0); MEAN CORPUSCULAR VOLUME 84.3 fL (80.0-94.0); MEAN PLATELET VOLUME 9.5 fL (7.4-11.4); RED BLOOD COUNT 3.64 10^6/uL (4.70-6.10); RED CELL DISTRIBUTION WIDTH 13.7 % (12.0-15.0); WHITE BLOOD COUNT 11.4 x10^3/uL (4.8-10.8)
[2021-10-03 17:37] LABS: CALCIUM 9.3 mg/dL (8.5-10.3); CREATININE 3.2 mg/dL (0.6-1.2); POTASSIUM 4.9 mmol/L (3.5-5.0)
[2021-10-03 17:41] LABS: FERRITIN 193.8 ng/mL (23.9-336.2)
== END 2021-10-03 16:43 | disposition home or self-care (01) ==
LOC: LAB 16:42
PROVIDERS: ATTEND Internal Medicine Nephrology
DX: N05.9 Unspecified nephritic syndrome with unspecified morphologic changes (principal); D70.9 Neutropenia, unspecified; D63.1 Anemia in chronic kidney disease; D50.0 Iron deficiency anemia secondary to blood loss (chronic); D64.9 Anemia, unspecified
CPT/HCPCS: 36415; 80048; 82607; 82728; 82746; 83540; 84466; 85027

== ENCOUNTER 2021-10-18 13:32 | Outpatient (CLI) | payer MEDICARE, OTHER ==
--- NOTE | 2021-10-18 17:33 | MRI Report ---
PROCEDURE: Shoulder LT W/O INDICATIONS: COMPLETE ROTATOR CUFF TEAR TECHNIQUE: Noncontrast oblique coronal T2 fast spin echo with fat saturation, oblique sagittal T1 spin echo and T2 fast spin echo with fat saturation, axial T1 spin echo and T2 fast spin echo with fat saturation t hrough the shoulder. COMPARISON: Partially degraded by motion artifact. FINDINGS: Image quality: Excellent. Rotator cuff: Full thickness tearing of the entire supraspinatus and infraspinatus tendons. Full-thic kness tearing of the mid and superior subscapularis tendons. Medial retraction and atrophy of the sub scapularis, supraspinatus, infraspinatus tendons. Teres minor tendon is intact. Bones and bursae: No bone marrow contusions or fractures. Superior subluxation of the humeral head. Severe acromioclavicular joint degeneration. The acromion demonstrates conventional anatomy, without an os acromiale. No pathologic subacromial/subdeltoid bursal fluid is present. Capsule and soft tissues: Diffuse degenerative glenoid labral tearing. Full-thickness tearing of the biceps tendon. The rotator interval appears normal, without fibrosis. The coracohumeral ligament is normal in thickness. IMPRESSION: 1. Full-thickness tearing of the super spinatus, infraspinatus, and most of the subscapularis, with m edial retraction and atrophy. 2. Acromioclavicular and glenohumeral joint osteoarthritis. 3. Diffuse glenoid labral tearing. 4. Biceps tendon tear. Reviewed by: Ashley Lucero MD on 10/18/2021 4:32 PM [email or web address] Approved by: Ashley Lucero MD on 10/18/2021 4:32 PM AKDT Station ID: [id number]
== END 2021-10-18 13:33 | disposition home or self-care (01) ==
LOC: DI 13:32
PROVIDERS: ATTEND Physician Assistant
DX: M75.122 Complete rotator cuff tear or rupture of left shoulder, not specified as traumatic (principal); M19.012 Primary osteoarthritis, left shoulder; S43.492A Other sprain of left shoulder joint, initial encounter; S46.222A Laceration of muscle, fascia and tendon of other parts of biceps, left arm, initial encounter

== ENCOUNTER 2021-11-13 13:45 | Outpatient (CLI) | payer MEDICARE, OTHER ==
[2021-11-13 14:23] LABS: CALCIUM 9.3 mg/dL (8.5-10.3); CREATININE 3.5 mg/dL (0.6-1.2); POTASSIUM 3.9 mmol/L (3.5-5.0)
== END 2021-11-13 13:46 | disposition home or self-care (01) ==
LOC: LAB 13:45
PROVIDERS: ATTEND Internal Medicine Nephrology
DX: N05.9 Unspecified nephritic syndrome with unspecified morphologic changes (principal)
CPT/HCPCS: 36415; 80048

== ENCOUNTER 2021-12-20 14:23 | Outpatient (CLI) | payer MEDICARE, OTHER ==
[2021-12-20 14:43] LABS: HCT - HEMATOCRIT 24.1 % (42.0-52.0); HGB - HEMOGLOBIN 7.8 g/dL (14.0-18.0); MEAN CORPUSCULAR HEMOGLOBIN 27.7 pg (27.0-31.0); MEAN CORPUSCULAR HGB CONC 32.4 g/dL (32.0-36.0); MEAN CORPUSCULAR VOLUME 85.5 fL (80.0-94.0); MEAN PLATELET VOLUME 10.1 fL (7.4-11.4); RED BLOOD COUNT 2.82 10^6/uL (4.70-6.10); RED CELL DISTRIBUTION WIDTH 17.5 % (12.0-15.0); WHITE BLOOD COUNT 8.6 x10^3/uL (4.8-10.8)
[2021-12-20 15:08] LABS: CALCIUM 8.9 mg/dL (8.5-10.3); CREATININE 3.4 mg/dL (0.6-1.2); POTASSIUM 4.8 mmol/L (3.5-5.0)
== END 2021-12-20 14:24 | disposition home or self-care (01) ==
LOC: LAB 14:23
PROVIDERS: ATTEND Internal Medicine Nephrology
DX: D70.9 Neutropenia, unspecified (principal); N05.9 Unspecified nephritic syndrome with unspecified morphologic changes; D63.1 Anemia in chronic kidney disease
CPT/HCPCS: 36415; 80048; 85027

== ENCOUNTER 2021-12-21 14:31 | Outpatient (CLI) | payer MEDICARE, OTHER | END 2021-12-21 14:32 | disposition short-term general hospital (02) | LOC: EMS 14:31 | DX: R06.09 Other forms of dyspnea (principal); R53.83 Other fatigue; R60.0 Localized edema; R14.0 Abdominal distension (gaseous) | CPT/HCPCS: A0425; A0427 ==

== ENCOUNTER 2022-01-02 14:46 | Outpatient (CLI) | payer MEDICARE, OTHER ==
[2022-01-02 15:03] LABS: HCT - HEMATOCRIT 25.2 % (42.0-52.0); HGB - HEMOGLOBIN 8.1 g/dL (14.0-18.0); MEAN CORPUSCULAR HEMOGLOBIN 27.5 pg (27.0-31.0); MEAN CORPUSCULAR HGB CONC 32.1 g/dL (32.0-36.0); MEAN CORPUSCULAR VOLUME 85.4 fL (80.0-94.0); MEAN PLATELET VOLUME 8.3 fL (7.4-11.4); RED BLOOD COUNT 2.95 10^6/uL (4.70-6.10); RED CELL DISTRIBUTION WIDTH 17.4 % (12.0-15.0); WHITE BLOOD COUNT 7.1 x10^3/uL (4.8-10.8)
[2022-01-02 15:29] LABS: CALCIUM 9.3 mg/dL (8.5-10.3); CREATININE 3.2 mg/dL (0.6-1.2); POTASSIUM 4.1 mmol/L (3.5-5.0); URIC ACID 11.1 mg/dL (2.6-7.2)
== END 2022-01-02 14:47 | disposition home or self-care (01) ==
LOC: LAB 14:46
PROVIDERS: ATTEND Internal Medicine Nephrology
DX: N05.9 Unspecified nephritic syndrome with unspecified morphologic changes (principal); D70.9 Neutropenia, unspecified; D63.1 Anemia in chronic kidney disease; M10.00 Idiopathic gout, unspecified site; D50.0 Iron deficiency anemia secondary to blood loss (chronic)
CPT/HCPCS: 36415; 80048; 82728; 83540; 84466; 84550; 85027

== ENCOUNTER 2022-01-10 15:44 | Outpatient (CLI) | payer MEDICARE, OTHER ==
[2022-01-10 15:55] LABS: HCT - HEMATOCRIT 25.1 % (42.0-52.0); HGB - HEMOGLOBIN 8.1 g/dL (14.0-18.0); MEAN CORPUSCULAR HEMOGLOBIN 27.4 pg (27.0-31.0); MEAN CORPUSCULAR HGB CONC 32.3 g/dL (32.0-36.0); MEAN CORPUSCULAR VOLUME 84.8 fL (80.0-94.0); MEAN PLATELET VOLUME 10.4 fL (7.4-11.4); RED BLOOD COUNT 2.96 10^6/uL (4.70-6.10); RED CELL DISTRIBUTION WIDTH 17.2 % (12.0-15.0); WHITE BLOOD COUNT 7.4 x10^3/uL (4.8-10.8)
[2022-01-10 16:23] LABS: POTASSIUM 4.5 mmol/L (3.5-5.0)
[2022-01-10 16:25] LABS: CREATININE 3.6 mg/dL (0.6-1.2)
== END 2022-01-10 15:45 | disposition home or self-care (01) ==
LOC: LAB 15:44
PROVIDERS: ATTEND Internal Medicine Nephrology
DX: N05.9 Unspecified nephritic syndrome with unspecified morphologic changes (principal); D70.9 Neutropenia, unspecified; D63.1 Anemia in chronic kidney disease
CPT/HCPCS: 36415; 80048; 85027

== ENCOUNTER 2022-01-15 12:43 | Outpatient (CLI) | payer MEDICARE, OTHER ==
[2022-01-15 12:57] LABS: BASOPHILS # (AUTO) 0.1 10^3/uL (0.0-0.1); BASOPHILS % (AUTO) 0.9 %; EOSINOPHILS # (AUTO) 0.2 10^3/uL (0.0-0.7); EOSINOPHILS % (AUTO) 2.8 %; HCT - HEMATOCRIT 24.3 % (42.0-52.0); HGB - HEMOGLOBIN 7.6 g/dL (14.0-18.0); LYMPHOCYTES # (AUTO) 0.7 10^3/uL (1.5-3.5); LYMPHOCYTES % (AUTO) 8.3 %; MEAN CORPUSCULAR HGB CONC 31.3 g/dL (32.0-36.0); MEAN CORPUSCULAR VOLUME 86.2 fL (80.0-94.0); MEAN PLATELET VOLUME 9.3 fL (7.4-11.4); MONOCYTES # (AUTO) 0.7 10^3/uL (0.0-1.0); MONOCYTES % (AUTO) 8.1 %; NEUTROPHILS # (AUTO) 6.5 10^3/uL (1.5-6.6); NEUTROPHILS % (AUTO) 79.5 %; PLT - PLATELET COUNT 241 10^3/uL (130-450); RED BLOOD COUNT 2.82 10^6/uL (4.70-6.10); RED CELL DISTRIBUTION WIDTH 17.7 % (12.0-15.0); WHITE BLOOD COUNT 8.2 x10^3/uL (4.8-10.8)
[2022-01-15 14:18] LABS: CALCIUM 9.2 mg/dL (8.5-10.3); CREATININE 3.2 mg/dL (0.6-1.2); POTASSIUM 4.8 mmol/L (3.5-5.0)
== END 2022-01-15 12:44 | disposition home or self-care (01) ==
LOC: LAB 12:43
PROVIDERS: ATTEND Internal Medicine Nephrology
DX: N05.9 Unspecified nephritic syndrome with unspecified morphologic changes (principal); D70.9 Neutropenia, unspecified; D63.1 Anemia in chronic kidney disease
CPT/HCPCS: 36415; 80048; 85025

== ENCOUNTER 2022-06-15 10:51 | Outpatient (CLI) | payer MEDICARE, OTHER | END 2022-06-15 23:59 | disposition EMS.NT | LOC: EMS 10:51 | DX: Z03.89 Encounter for observation for other suspected diseases and conditions ruled out (principal) ==

== ENCOUNTER 2022-07-01 16:52 | Outpatient (CLI) | payer MEDICARE, OTHER | END 2022-07-05 23:20 | disposition critical access hospital (66) | LOC: EMS 16:52 | DX: M54.50 Low back pain, unspecified (principal); Z91.81 History of falling | CPT/HCPCS: A0425; A0429 ==

== ENCOUNTER 2022-07-01 17:19 | Emergency (ER) | payer MEDICARE, OTHER ==
--- OUTSIDE RECORDS SUMMARY | 2022-07-01 17:30 | EXTERNAL MEDICAL SUMMARY RPT | Continuity of Care Document ---
:1950 Author Organization [facility] Address [address] [place] [address] Phone Care Team Providers Name Role Phone Lg Heatonson Unavailable Unavailable Allergies No information. Encounters No information. Functional Status No information. Immunizations No information. Medications date description facility 2022-04-12 00:00 insulin glargine All 2022-04-12 00:00 isosorbide dinitrate All 2022-05-23 00:00 isosorbide dinitrate All 2022-04-12 00:00 insulin glargine All 2022-04-12 00:00 isosorbide dinitrate All 2022-05-23 00:00 isosorbide dinitrate All 2022-04-12 00:00 insulin glargine All 2022-04-12 00:00 isosorbide dinitrate All 2022-05-23 00:00 isosorbide dinitrate All 2022-04-12 00:00 isosorbide dinitrate All 2022-05-23 00:00 isosorbide dinitrate All 2022-04-12 00:00 insulin glargine All 2022-04-12 00:00 ditmimop-fou-xs-lycopen-lutein All 2022-05-23 00:00 hzezevrk-ogo-nk-lycopen-lutein All Problems No information. Procedures No information. Results/Labs No information. Social History No information. Vital Signs No information.
[2022-07-01] MEDS ORDERED: HYDROcod/ACETAM 5/325 MG TABLET PO STA (17:32)
--- NOTE | 2022-07-01 17:34 | ED Physician Documentation ---
History of Present Illness - Stated complaint Stated Complaint: LOW BACK PX - History obtained from History obtained from: Patient - Additonal information Additional information: This 72-year-old gentleman with history of ESRD, on dialysis Saturday. He presents with basically 2 complaints, 1 is that he had several recent falls. He does not feel like he was injured but he does have right hip pain. He is and encouraged him to come to the hospital to make sure that he did not have a broken bone. He does not feel like he has a broken bone. His main complaint is inflammation between his buttocks. That has been going on for the last 2 or 3 weeks because of increased sitting. He denies fevers or chills. PD PAST MEDICAL HISTORY - Past Medical History Cardiovascular: Congestive heart failure, Hypertension, High cholesterol, [place] Respiratory: Sleep apnea Neuro: None Endocrine/Autoimmune: Type 2 diabetes GI: GERD : Renal insuffiency HEENT: Other Psych: Depression Musculoskeletal: None Derm: None - Past Surgical History Past Surgical History: Yes Cardiovascular: Coronary stent HEENT: Cataracts - Present Medications Home Medications: Ambulatory Orders Medication Instructions Recorded Confirmed Insulin Glargine [Lantus Solostar] 40 unit SUBQ QPM 03/10/14 01/15/22 Aspirin 81 mg PO DAILY 04/20/16 01/15/22 Atorvastatin Calcium 80 mg PO DAILY 04/20/16 01/15/22 Carvedilol 25 mg PO BID 05/31/16 01/15/22 Insulin Lispro [Humalog] 0 - 20 units SQ TIDWM 05/31/16 01/15/22 Pantoprazole [Protonix] 40 mg PO DAILY 08/23/18 01/15/22 Sertraline [Zoloft] 100 mg PO DAILY 08/23/18 01/15/22 Ferrous Sulfate 325 mg PO DAILY 05/25/19 01/15/22 Hydralazine HCl 100 mg TID 04/15/20 01/15/22 Torsemide 40 mg PO DAILY 04/15/20 01/15/22 HYDROcod/ACETAM 5/325 [[place] 5/325] 1 - 2 tab PO Q6H PRN #20 tablet 07/01/22 Nystatin [Nystop] 1 applic TOP BID #3 each 07/01/22 - Allergies Allergies/Adverse Reactions: Allergies Allergy/AdvReac Type Severity Reaction Status Date / Time No Known Drug Allergies Allergy Verified 07/01/22 17:29 - Social History Does the pt smoke?: No Smoking Status: Never smoker Does the pt drink ETOH?: No Does the pt have substance abuse?: No - Immunizations Immunizations are current?: Yes - POLST Patient has POLST: No PD ED PE NORMAL - Vitals Vital signs reviewed: Yes - General General: Alert and oriented X 3, No acute distress - HEENT HEENT: PERRL, EOMI - Neck Neck: Supple, no meningeal sign, No bony TTP - Cardiac Cardiac: RRR, No murmur, Other (Marcum right upper chest wall, no sign of infection) - Respiratory Respiratory: No respiratory distress, Clear bilaterally - Abdomen Abdomen: Non tender - Back Back: No CVA TTP, No spinal TTP - Derm Derm: Other (He has 2 very small to grade 2 pressure ulcers, only about dime size at the top of gluteal crease and just to the right. He has intertriginous nicolette in the gluteal folds. No tenderness. No cellulitis. No fluctuant areas.) - Extremities Extremities: Other (Mild pain with internal and external rotation of the right hip and palpation of the low back.) - Neuro Neuro: Alert and oriented X 3, Normal speech Eye Opening: Spontaneous Motor: Obeys Commands Verbal: Oriented GCS Score: 15 Results - Vitals Vitals: Vital Signs - 24 hr 07/01/22 07/01/22 07/01/22 17:29 17:33 18:14 Temperature 36.9 C Heart Rate 55 L 55 L 55 L Respiratory 16 16 14 Rate Blood Pressure 148/59 H 144/62 H 158/67 H O2 Saturation 98 92 93 Oxygen O2 Source Room air - Labs Labs: Laboratory Tests 07/01/22 07/01/22 17:42 17:42 WBC 20.1 H RBC 4.35 L Hgb 11.2 L Hct 34.9 L MCV 80.2 MCH 25.7 L MCHC 32.1 RDW 18.1 H Plt Count 280 MPV 9.4 Neut # (Auto) Not Reportable Lymph # (Auto) Not Reportable [place] # (Auto) Not Reportable Eos # (Auto) Not Reportable Baso # (Auto) Not Reportable Absolute Nucleated RBC Not Reportable Total Counted 100 Band Neuts % (Manual) 2 Reactive Lymphs % (Man) 1 Abnorm Lymph % (Manual) 0 Nucleated RBC % Not Reportable Neutrophils # (Manual) 17.5 H Lymphocytes # (Manual) 1.4 L Monocytes # (Manual) 1.2 H Eosinophils # (Manual) 0.0 Basophils # (Manual) 0.0 Differential Comment MANUAL DIFFERENTIAL Platelet Estimate NORMAL (130-450,000) Platelet Morphology NORMAL APPEARANCE RBC Morph Micro Appear 2+ ANISOCYTOSIS Sodium 128 L Potassium 3.5 Chloride 89 L Carbon Dioxide 30 Anion Gap 9.0 BUN 47 H Creatinine 2.8 H Estimated GFR (MDRD) 23 L Glucose 210 H Calcium 8.4 L PD Medical Decision Making - ED course ED course: ;/72-year-old gentleman presents he is deconditioned from recent hospitalizations and fluid overload, dialysis Saturday and Saturday. He has 2 small pressure ulcers that are noninfected and some Nicolette in the gluteal creases. He has back pain after recent fall and imaging demonstrates an L2 compression fracture. He was feeling better after some hydrocodone. With his permission I did send an email to his primary care nurse practitioner suggesting home health and PT. Departure - Departure Disposition: Home, Self Care Clinical Impression: ESRD (end stage renal disease), Candidal skin infection, Muscular deconditioning Compression fracture of L2 Qualifiers: Encounter type: initial encounter Qualified Code(s): S32.020A - Wedge compression fracture of second lumbar vertebra, initial encounter for closed fracture Condition: Good Record reviewed to determine appropriate education?: Yes Instructions: ED Fx Comp Vertebral Prescriptions: HYDROcod/ACETAM 5/325 [[place] 5/325] 1 - 2 tab PO Q6H PRN #20 tablet PRN Reason: Pain Nystatin [Nystop] 1 applic TOP BID #3 each Comments: I sent your prescriptions electronically to [facility] in [place]. These include something for pain as well as hydrocodone for the L2 compression fracture. I did send your primary care nurse practitioner an email recommending consideration for home health and physical therapy. Continue dialysis Saturday and Saturday. Return for new or worsening symptoms. I am prescribing a short course of narcotic pain medication for you. These are potentially dangerous and addictive medications that should be used carefully. These medications may constipate you. Take an heqd-vbw-azwmbrw stool softener (docusate) twice daily with plenty of water while taking these medications. If you go 24 hours without a bowel movement, take ruav-yur-dqgnmsm miralax, per package instructions. Do not drink or drive while taking these medications. If you received narcotic or sedating medications while in the emergency department, do not drive for 24 hours. Store this medication in a safe, secure place and out of reach of children. It is a violation of federal law to give or sell this medication to another person or to use in a manner other than prescribed. The ED will not refill narcotic prescriptions, including prescriptions lost or stolen. To dispose of unwanted medications: 1. [facility] [address] in [place] has a medication drop box. They accept prescription medications (in pill form) Saturday through Saturday 9:00 a.m. to 5:00 p.m. 2. The [facility] [employer] accepts prescription medications (in pill form only) for disposal year round. Call for more information. 3. Contact the [facility] for the next [facility] sponsored prescription drug collection event. , [phone], or [phone]; Note that many narcotic pain relievers also contain Tylenol/acetaminophen. Please ensure that your total dose of acetaminophen from all sources does not exceed 3 g (3000 mg) per day.
[2022-07-01 17:47] LABS: BASOPHILS % (AUTO) 0.2 %; EOSINOPHILS % (AUTO) 0.4 %; HCT - HEMATOCRIT 34.9 % (42.0-52.0); HGB - HEMOGLOBIN 11.2 g/dL (14.0-18.0); LYMPHOCYTES % (AUTO) 5.6 %; MEAN CORPUSCULAR HEMOGLOBIN 25.7 pg (27.0-31.0); MEAN CORPUSCULAR HGB CONC 32.1 g/dL (32.0-36.0); MEAN CORPUSCULAR VOLUME 80.2 fL (80.0-94.0); MEAN PLATELET VOLUME 9.4 fL (7.4-11.4); MONOCYTES % (AUTO) 5.9 %; NEUTROPHILS % (AUTO) 87.2 %; PLT - PLATELET COUNT 280 10^3/uL (130-450); RED BLOOD COUNT 4.35 10^6/uL (4.70-6.10); RED CELL DISTRIBUTION WIDTH 18.1 % (12.0-15.0); WHITE BLOOD COUNT 20.1 x10^3/uL (4.8-10.8)
[2022-07-01 17:55] LABS: CALCIUM 8.4 mg/dL (8.5-10.3); CREATININE 2.8 mg/dL (0.6-1.2); POTASSIUM 3.5 mmol/L (3.5-5.0)
[2022-07-01 17:58] LABS: ABNORMAL LYMPHS % (MANUAL) 0 %
[2022-07-01 18:26] LABS: BAND NEUTROPHILS % (MANUAL) 2 %; LYMPHOCYTES # (MANUAL) 1.4 10^3/uL (1.5-3.5); LYMPHOCYTES % (MANUAL) 6 %; MONOCYTES # (MANUAL) 1.2 10^3/uL (0.0-1.0); NEUTROPHILS # (MANUAL) 17.5 10^3/uL (1.5-6.6); PLATELET ESTIMATE, MANUAL NORMAL (130-450,000) (NORMAL); PLATELET MORPHOLOGY NORMAL APPEARANCE (NORMAL); RBC MORPHOLOGY (MULTIPLE) 2+ ANISOCYTOSIS (NORMAL); REACTIVE LYMPHS % (MANUAL) 1 %
[2022-07-01 18:27] LABS: DIFFERENTIAL COMMENT MANUAL DIFFERENTIAL
--- NOTE | 2022-07-01 18:42 | CT Report ---
PROCEDURE: PELVIS WO INDICATIONS: hipe inj TECHNIQUE: Noncontrast 3 mm axial sections acquired through the bony pelvis, with coronal and sagittal reformatt ing. For radiation dose reduction, the following was used: automated exposure control, adjustment of mA and/or kV according to patient size. COMPARISON: None. FINDINGS: Image quality: Excellent. Bones: Degenerative changes at L4-5. Soft tissues: Vasculature has atherosclerotic calcifications. No pelvic hematoma. Soft tissues demon strate anasarca. The bladder demonstrates wall thickening. Please correlate with urinalysis. Fat-cont aining left inguinal hernia. IMPRESSION: No acute traumatic abnormality of the pelvis. Reviewed by: Mitchell Sylvester on 07/01/2022 5:40 PM URIAH Approved by: Mitchell Sylvester on 07/01/2022 5:40 PM URIAH Station ID: [id number]
--- NOTE | 2022-07-01 18:47 | CT Report ---
PROCEDURE: LUMBAR SPINE WO INDICATIONS: back injury TECHNIQUE: Noncontrast 3 mm thick sections acquired from the T12 level to the sacrum. Sagittal and coronal refo rmats were constructed. For radiation dose reduction, the following was used: automated exposure co ntrol, adjustment of mA and/or kV according to patient size. COMPARISON: None. FINDINGS: Image quality: Excellent. Bones: Multilevel degenerative changes. Compression fracture with 60% anterior height loss of L2 cons istent with an acute compression fracture. Multilevel disc disease with Schmorl's nodes at multiple l evels. Vacuum disc changes at L4-5 and L5-S1. Leftward curvature of the lumbar spine. The sacroiliac joints are normal. Soft tissues: No retroperitoneal masses or hematomas. Visualized aorta is normal in caliber. IMPRESSION: 1. L2 compression fracture of L2 with 60% anterior height loss, new compared to prior CT in 2017.. 2. Multilevel degenerative changes and disc disease. Reviewed by: Mitchell Sylvester on 07/01/2022 5:45 PM [facility] Approved by: Mitchell Sylvester on 07/01/2022 5:45 PM URIAH Station ID: [id number]
[2022-07-01 19:20] VITALS: BP 155/66
== END 2022-07-01 19:41 | disposition home or self-care (01) ==
LOC: EDUNIT# → ED 17:19
DX: E11.22 Type 2 diabetes mellitus with diabetic chronic kidney disease (principal); I12.0 Hypertensive chronic kidney disease with stage 5 chronic kidney disease or end stage renal disease; N18.6 End stage renal disease; B37.2 Candidiasis of skin and nail; S32.020A Wedge compression fracture of second lumbar vertebra, initial encounter for closed fracture; W19.XXXA Unspecified fall, initial encounter; Z79.4 Long term (current) use of insulin; Z95.5 Presence of coronary angioplasty implant and graft; Z91.81 History of falling
CPT/HCPCS: 36415; 72131; 72192; 80048; 85025; 99284; A9270

== ENCOUNTER 2022-07-02 12:06 | Outpatient (CLI) | payer MEDICARE, OTHER | END 2022-07-02 23:59 | disposition critical access hospital (66) | LOC: EMS 12:06 | DX: R46.4 Slowness and poor responsiveness (principal); E11.649 Type 2 diabetes mellitus with hypoglycemia without coma; R61 Generalized hyperhidrosis; Z79.4 Long term (current) use of insulin; Z99.2 Dependence on renal dialysis | CPT/HCPCS: A0425; A0427 ==

== ENCOUNTER 2022-07-02 12:34 | Emergency (ER) | payer MEDICARE, OTHER ==
[2022-07-02] MEDS ORDERED: ALBUTEROL NEB 2.5 MG/3 ML INH STA (13:02)
--- OUTSIDE RECORDS SUMMARY | 2022-07-02 13:08 | EXTERNAL MEDICAL SUMMARY RPT | Continuity of Care Document ---
:1950 Author Organization [facility] Address [address] [place] [address] Phone Care Team Providers Name Role Phone Unavailable Unavailable Unavailable Shantell Heaton Unavailable Unavailable Allergies No information. Encounters No information. Functional Status No information. Immunizations No information. Medications date description facility 2022-04-12 00:00 insulin glargine All 2022-04-12 00:00 isosorbide dinitrate All 2022-05-23 00:00 isosorbide dinitrate All 2022-07-01 00:00 isosorbide dinitrate All 2022-04-12 00:00 insulin glargine All 2022-04-12 00:00 isosorbide dinitrate All 2022-05-23 00:00 isosorbide dinitrate All 2022-07-01 00:00 isosorbide dinitrate All 2022-04-12 00:00 insulin glargine All 2022-04-12 00:00 isosorbide dinitrate All 2022-05-23 00:00 isosorbide dinitrate All 2022-07-01 00:00 isosorbide dinitrate All 2022-04-12 00:00 isosorbide dinitrate All 2022-05-23 00:00 isosorbide dinitrate All 2022-07-01 00:00 isosorbide dinitrate All 2022-04-12 00:00 insulin glargine All 2022-04-12 00:00 pplthfkd-yaa-ya-lycopen-lutein All 2022-05-23 00:00 wbdbqscp-cfc-is-lycopen-lutein All 2022-07-01 00:00 mibgbxie-qnw-kh-lycopen-lutein All Problems No information. Procedures No information. Results/Labs test date author facility value unit interpret ation Result panel 1 (unknown) (no date) (unknown) All (no value) (units unknown ) (unknown) Result panel 2 (unknown) (no date) (unknown) All (no value) (units unknown ) (unknown) Result panel 3 (unknown) (no date) (unknown) All (no value) (units unknown ) (unknown) Result panel 4 (unknown) (no date) (unknown) All (no value) (units unknown ) (unknown) Result panel 5 (unknown) (no date) (unknown) All (no value) (units unknown ) (unknown) Result panel 6 (unknown) (no date) (unknown) All (no value) (units unknown ) (unknown) Result panel 7 (unknown) (no date) (unknown) All (no value) (units unknown ) (unknown) Result panel 8 (unknown) (no date) (unknown) All (no value) (units unknown ) (unknown) Result panel 9 (unknown) (no date) (unknown) All (no value) (units unknown ) (unknown) Result panel 10 (unknown) (no date) (unknown) All (no value) (units unknown ) (unknown) Result panel 11 (unknown) (no date) (unknown) All (no value) (units unknown ) (unknown) Result panel 12 (unknown) (no date) (unknown) All (no value) (units unknown ) (unknown) Result panel 13 (unknown) (no date) (unknown) All (no value) (units unknown ) (unknown) Result panel 14 (unknown) (no date) (unknown) All (no value) (units unknown ) (unknown) Result panel 15 (unknown) (no date) (unknown) All (no value) (units unknown ) (unknown) Result panel 16 (unknown) (no date) (unknown) All (no value) (units unknown ) (unknown) Result panel 17 (unknown) (no date) (unknown) All (no value) (units unknown ) (unknown) Result panel 18 (unknown) (no date) (unknown) All (no value) (units unknown ) (unknown) Result panel 19 (unknown) (no date) (unknown) All (no value) (units unknown ) (unknown) Result panel 20 (unknown) (no date) (unknown) All (no value) (units unknown ) (unknown) Result panel 21 (unknown) (no date) (unknown) All (no value) (units unknown ) (unknown) Result panel 22 (unknown) (no date) (unknown) All (no value) (units unknown ) (unknown) Result panel 23 (unknown) (no date) (unknown) All (no value) (units unknown ) (unknown) Result panel 24 (unknown) (no date) (unknown) All (no value) (units unknown ) (unknown) Result panel 25 (unknown) (no date) (unknown) All (no value) (units unknown ) (unknown) Result panel 26 (unknown) (no date) (unknown) All (no value) (units unknown ) (unknown) Result panel 27 (unknown) (no date) (unknown) All (no value) (units unknown ) (unknown) Result panel 28 (unknown) (no date) (unknown) All (no value) (units unknown ) (unknown) Result panel 29 (unknown) (no date) (unknown) All (no value) (units unknown ) (unknown) Result panel 30 (unknown) (no date) (unknown) All (no value) (units unknown ) (unknown) Result panel 31 (unknown) (no date) (unknown) All (no value) (units unknown ) (unknown) Result panel 32 (unknown) (no date) (unknown) All (no value) (units unknown ) (unknown) Result panel 33 (unknown) (no date) (unknown) All (no value) (units unknown ) (unknown) Result panel 34 (unknown) (no date) (unknown) All (no value) (units unknown ) (unknown) Result panel 35 (unknown) (no date) (unknown) All (no value) (units unknown ) (unknown) Result panel 36 (unknown) (no date) (unknown) All (no value) (units unknown ) (unknown) Result panel 37 (unknown) (no date) (unknown) All (no value) (units unknown ) (unknown) Result panel 38 (unknown) (no date) (unknown) All (no value) (units unknown ) (unknown) Result panel 39 (unknown) (no date) (unknown) All (no value) (units unknown ) (unknown) Result panel 40 (unknown) (no date) (unknown) All (no value) (units unknown ) (unknown) Result panel 41 (unknown) (no date) (unknown) All (no value) (units unknown ) (unknown) Result panel 42 (unknown) (no date) (unknown) All (no value) (units unknown ) (unknown) Result panel 43 (unknown) (no date) (unknown) All (no value) (units unknown ) (unknown) Result panel 44 (unknown) (no date) (unknown) All (no value) (units unknown ) (unknown) Result panel 45 (unknown) (no date) (unknown) All (no value) (units unknown ) (unknown) Result panel 46 (unknown) (no date) (unknown) All (no value) (units unknown ) (unknown) Result panel 47 (unknown) (no date) (unknown) All (no value) (units unknown ) (unknown) Result panel 48 (unknown) (no date) (unknown) All (no value) (units unknown ) (unknown) Result panel 49 (unknown) (no date) (unknown) All (no value) (units unknown ) (unknown) Result panel 50 (unknown) (no date) (unknown) All (no value) (units unknown ) (unknown) Result panel 51 (unknown) (no date) (unknown) All (no value) (units unknown ) (unknown) Result panel 52 (unknown) (no date) (unknown) All (no value) (units unknown ) (unknown) Result panel 53 (unknown) (no date) (unknown) All (no value) (units unknown ) (unknown) Result panel 54 (unknown) (no date) (unknown) All (no value) (units unknown ) (unknown) Result panel 55 (unknown) (no date) (unknown) All (no value) (units unknown ) (unknown) Social History No information. Vital Signs No information.
[2022-07-02 13:27] LABS: BASOPHILS % (AUTO) 0.2 %; EOSINOPHILS % (AUTO) 0.1 %; HGB - HEMOGLOBIN 12.3 g/dL (14.0-18.0); LYMPHOCYTES % (AUTO) 3.6 %; MEAN CORPUSCULAR HEMOGLOBIN 25.4 pg (27.0-31.0); MEAN CORPUSCULAR HGB CONC 30.8 g/dL (32.0-36.0); MEAN CORPUSCULAR VOLUME 82.5 fL (80.0-94.0); MEAN PLATELET VOLUME 10.5 fL (7.4-11.4); MONOCYTES % (AUTO) 4.1 %; NEUTROPHILS % (AUTO) 91.2 %; PLT - PLATELET COUNT 263 10^3/uL (130-450); RED BLOOD COUNT 4.85 10^6/uL (4.70-6.10); RED CELL DISTRIBUTION WIDTH 18.7 % (12.0-15.0); WHITE BLOOD COUNT 24.7 x10^3/uL (4.8-10.8)
[2022-07-02 13:30] LABS: SLIDE REVIEW? Indicated
[2022-07-02 13:31] LABS: ABNORMAL LYMPHS % (MANUAL) 0 %
--- NOTE | 2022-07-02 13:37 | XRAY Report ---
PROCEDURE: Chest 1 View X-Ray INDICATIONS: chest pain TECHNIQUE: One view of the chest was acquired. COMPARISON: None. FINDINGS: Surgical changes and devices: Right IJ dual-lumen catheter tips project over the cavoatrial junction .. Lungs and pleura: No pleural effusions or pneumothorax. Lungs are clear. Mediastinum: Mediastinal contours appear normal. Heart size is normal. Bones and chest wall: No suspicious bony lesions. Overlying soft tissues appear unremarkable. IMPRESSION: No acute cardiopulmonary process. Reviewed by: Jonatan Ocasio on 07/02/2022 1:36 PM PDT Approved by: Jonatan Ocasio on 07/02/2022 1:36 PM PDT Station ID: [id number]
[2022-07-02 13:48] LABS: ALBUMIN 2.7 g/dL (3.2-5.5); ALBUMIN/GLOBULIN RATIO 0.6 (1.0-2.2); BILIRUBIN,TOTAL 1.1 mg/dL (0.2-1.0); CALCIUM 8.4 mg/dL (8.5-10.3); MAGNESIUM 2.1 mg/dL (1.7-2.8); TOTAL PROTEIN 6.9 g/dL (6.7-8.2)
[2022-07-02 13:49] LABS: POTASSIUM 4.6 mmol/L (3.5-5.0)
[2022-07-02 13:54] LABS: BAND NEUTROPHILS % (MANUAL) 2 %; LYMPHOCYTES % (MANUAL) 2 %; MONOCYTES # (MANUAL) 0.7 10^3/uL (0.0-1.0); MYELOCYTES % (MANUAL) 1 %; NEUTROPHILS # (MANUAL) 22.7 10^3/uL (1.5-6.6); REACTIVE LYMPHS % (MANUAL) 2 %
[2022-07-02 13:55] LABS: DIFFERENTIAL COMMENT MANUAL DIFFERENTIAL; RBC MORPHOLOGY (MULTIPLE) 3+ ANISOCYTOSIS (NORMAL)
[2022-07-02] MEDS ORDERED: levoFLOXacin 750 MG/150 ML 750 MG/150 ML BAG IV STA (15:06)
[2022-07-02] MEDS: ALBUTEROL NEB 2.5 MG/3 ML INH SCH ×2 (17:33→19:20)
[2022-07-02] MEDS ORDERED: BUMETANIDE 1 MG/4 ML VIAL IVP STA (18:07)
--- NOTE | 2022-07-02 18:36 | ED Physician Documentation ---
PD HPI DYSPNEA - Stated complaint Stated Complaint: DIABETIC ISSUE - Chief complaint Chief Complaint: General - History obtained from History obtained from: Patient, Family (), EMS - History of Present Illness Timing - onset: Today Timing - details: Gradual onset Inciting event(s): URI (Possibly with some back pain and general malaise and myalgias for several days and a cough now with some wheezing for couple of days.). No: Out of meds Associated symptoms: Cough, Bilateral edema (chronic per ). No: Fever, Chest pain / discomfort Similar symptoms before: Has not had sx before (History of dialysis with fluid retention and low oxygenation related to fluid overload in the past. No history of COPD and has not had prior wheezing. Just recent episodes of hypoglycemia with increased insulin regimen last week.) Recently seen: Emergency Dept (yesterday for back pain) PD PAST MEDICAL HISTORY - Past Medical History Cardiovascular: Congestive heart failure, Hypertension, High cholesterol, SC Respiratory: Sleep apnea Neuro: None Endocrine/Autoimmune: Type 2 diabetes GI: GERD : Renal insuffiency HEENT: Other Psych: Depression Musculoskeletal: None Derm: None - Past Surgical History Past Surgical History: Yes Cardiovascular: Coronary stent HEENT: Cataracts - Present Medications Home Medications: Ambulatory Orders Medication Instructions Recorded Confirmed Insulin Glargine [Lantus Solostar] 40 unit SUBQ QPM 03/10/14 01/15/22 Aspirin 81 mg PO DAILY 04/20/16 01/15/22 Atorvastatin Calcium 80 mg PO DAILY 04/20/16 01/15/22 Carvedilol 25 mg PO BID 05/31/16 01/15/22 Insulin Lispro [Humalog] 0 - 20 units SQ TIDWM 05/31/16 01/15/22 Pantoprazole [Protonix] 40 mg PO DAILY 08/23/18 01/15/22 Sertraline [Zoloft] 100 mg PO DAILY 08/23/18 01/15/22 Ferrous Sulfate 325 mg PO DAILY 05/25/19 01/15/22 Hydralazine HCl 100 mg TID 04/15/20 01/15/22 Torsemide 40 mg PO DAILY 04/15/20 01/15/22 HYDROcod/ACETAM 5/325 [[place] 5/325] 1 - 2 tab PO Q6H PRN #20 tablet 07/01/22 Nystatin [Nystop] 1 applic TOP BID #3 each 07/01/22 - Allergies Allergies/Adverse Reactions: Allergies Allergy/AdvReac Type Severity Reaction Status Date / Time No Known Drug Allergies Allergy Verified 07/01/22 17:29 - Social History Does the pt smoke?: No Smoking Status: Never smoker Does the pt drink ETOH?: No Does the pt have substance abuse?: No - Immunizations Immunizations are current?: Yes - POLST Patient has POLST: No PD ED PE NORMAL - Vitals Vital signs reviewed: Yes - General General: Well developed/nourished. No: Alert and oriented X 3 (initially still some confused but more alert with oxygen and neb treatment. Recehck glucose improved. ) - Neck Neck: Supple, no meningeal sign, No adenopathy - Cardiac Cardiac: RRR, No murmur - Respiratory Respiratory: No: Clear bilaterally (wheezing noted. No coarse sounds. ) - Abdomen Abdomen: Soft, Non tender - Back Back: No CVA TTP - Derm Derm: Normal color, Warm and dry - Extremities Extremities: No calf tenderness / cord, Other (1+ edema in both lower extremitie s. ) - Neuro Neuro: Alert and oriented X 3, No motor deficit, No sensory deficit, Normal speech Results - Vitals Vitals: Vital Signs - 24 hr 07/02/22 07/02/22 07/02/22 12:56 13:40 15:28 Temperature 35.6 C L Heart Rate 56 L 64 54 L Respiratory 20 18 16 Rate Blood Pressure 180/66 H 143/63 H O2 Saturation 79 L 95 If not protocol 2 : Oxygen Flow, liters/minute 07/02/22 07/02/22 07/02/22 17:00 17:33 18:30 Temperature Heart Rate 55 L 58 L 53 L Respiratory 16 18 16 Rate Blood Pressure 149/73 H 136/65 H O2 Saturation 98 95 If not protocol 2 : Oxygen Flow, liters/minute Oxygen O2 Source Room air - Labs Labs: Laboratory Tests 07/02/22 07/02/22 07/02/22 13:21 13:25 13:25 WBC 24.7 H RBC 4.85 Hgb 12.3 L Hct 40.0 L MCV 82.5 MCH 25.4 L MCHC 30.8 L RDW 18.7 H Plt Count 263 MPV 10.5 Neut # (Auto) Not Reportable Lymph # (Auto) Not Reportable [place] # (Auto) Not Reportable Eos # (Auto) Not Reportable Baso # (Auto) Not Reportable Absolute Nucleated RBC Not Reportable Total Counted 100 Band Neuts % (Manual) 2 Reactive Lymphs % (Man) 2 Abnorm Lymph % (Manual) 0 Myelocytes % 1 H Nucleated RBC % Not Reportable Neutrophils # (Manual) 22.7 H Lymphocytes # (Manual) 1.0 L Monocytes # (Manual) 0.7 Eosinophils # (Manual) 0.0 Basophils # (Manual) 0.0 Differential Comment MANUAL DIFFERENTIAL Manual Slide Review Indicated RBC Morph Micro Appear 3+ ANISOCYTOSIS Sodium 128 L Potassium 4.6 Chloride 89 L Carbon Dioxide 26 Anion Gap 13.0 BUN 50 H Creatinine 3.0 H Estimated GFR (MDRD) 21 L Glucose 102 H Calcium 8.4 L Magnesium 2.1 Total Bilirubin 1.1 H AST 37 ALT 14 Alkaline Phosphatase 238 H Total Protein 6.9 Albumin 2.7 L Globulin 4.2 Albumin/Globulin Ratio 0.6 L Lipase 37 SARS-CoV-2 (PCR) NOT DETECTED 07/02/22 18:04 WBC RBC Hgb Hct MCV MCH MCHC RDW Plt Count MPV Neut # (Auto) Lymph # (Auto) [place] # (Auto) Eos # (Auto) Baso # (Auto) Absolute Nucleated RBC Total Counted Band Neuts % (Manual) Reactive Lymphs % (Man) Abnorm Lymph % (Manual) Myelocytes % Nucleated RBC % Neutrophils # (Manual) Lymphocytes # (Manual) Monocytes # (Manual) Eosinophils # (Manual) Basophils # (Manual) Differential Comment Manual Slide Review RBC Morph Micro Appear Sodium 130 L Potassium 4.0 Chloride 90 L Carbon Dioxide 29 Anion Gap 11.0 BUN 56 H Creatinine 3.1 H Estimated GFR (MDRD) 20 L Glucose 150 H Calcium 8.3 L Magnesium Total Bilirubin AST ALT Alkaline Phosphatase Total Protein Albumin Globulin Albumin/Globulin Ratio Lipase SARS-CoV-2 (PCR) - Rads (name of study) chest xray Relevant Findings:: Prelim report reviewed, EMP independent interpretation of test (no infiltrates. No CHF nor effusions. ), See rad report PD Medical Decision Making - ED course Complexity details: reviewed results, considered differential, d/w patient, d/w family (spouse) Reviewed Lab Results: Electrolyes are okay with low potassium in normal range. Desipte due for dialysis today, he does appear to be able to hold on it for now. Will work on resp syptoms, presume new respiratory process. Hd hypoglycemia as well but likely related to new increased insulin dosing last week. ED course: The patient and his spouse give supplemental information with the patient having been generally weak with some coughing and dyspnea and general weakness recently. He had also had an increase in his Lantus dose 3 to 4 days ago and his blood sugars have been running lower. He was poorly responsive this morning and the called EMS that found the patient's blood sugar to be very low at 17 and they gave the dextrose IV. He arrived to the ER awake and alert though having some respiratory wheezing and distress. His oxygenation was low 80s on room air and improved with nasal cannula. He does have history of renal failure and is on dialysis Saturday. He was due for it this afternoon. However he was too altered at the time and the appropriately called EMS. The patient did have some wheezing and mild work of breathing. He was given a nebulizer treatment with improvement. His oxygen level also was doing well on just nasal cannula. He had decreased work of breathing and does not look like he needs more aggressive airway intervention. His blood sugar was steady and he did have something to eat. Repeat blood sugars have shown improvement and maintained well. At this point we can go down from every 2 hour blood sugars to 4 times a day. I ordered for his usual medicines that he would commonly take that are most necessary. I will decrease his Lantus dose however since he is eating less and seeming sick. He does not have a history of needing oxygen. He does not appear to be in CHF per se though he does have leg edema. His chest x-ray is clear and his lungs do not sound wet. It sounds more likely he has new upper respiratory infection with the cough and wheeze and oxygen demand. As such she does not seem stable for discharge. However he will need dialysis not necessarily today but certainly within the next day or 2. Therefore you will not be able to be admitted at our facility. Calls were placed to the nearby facilities to look for transfer. At this point no beds are available and the patient is boarding here in the ER pending transfer or improvement enough. Potential could be improvement clinically and respiratorily where he is not needing oxygen and consider possibility of dialysis at [facility] tomorrow outpatient if he were well enough. Departure - Departure Disposition: 02 Transfer Acute Care Hosp Clinical Impression: Upper respiratory infection, Hypoglycemic episode in patient with diabetes mellitus, Hypoxia, Leukocytosis, Chronic renal failure, Dialysis patient Condition: Stable
[2022-07-02 18:41] LABS: CALCIUM 8.3 mg/dL (8.5-10.3); CREATININE 3.1 mg/dL (0.6-1.2)
[2022-07-02] MEDS: oxyCODONE 5 MG TABLET PO PRN (19:44)
[2022-07-02] MEDS ORDERED: carvediloL 12.5 MG TABLET PO SCH ×2 (21:00)
[2022-07-02] MEDS ORDERED: INSULIN GLARGINE-YFGN 300 UNIT/3 ML PEN SUBQ SCH (21:00)
[2022-07-02 21:37] LABS: B. PARAPERTUSSIS- RESP PCR PAN NOT DETECTED; B. PERTUSSIS- RESP PCR PANEL NOT DETECTED; C. PNEUMONIAE- RESP PCR PANEL NOT DETECTED; CORONAVIRUS 229E-RESP PCR NOT DETECTED; CORONAVIRUS HKU1-RESP PCR NOT DETECTED; CORONAVIRUS NL63-RESP PCR NOT DETECTED; CORONAVIRUS OC43-RESP PCR NOT DETECTED; HUMAN METAPNEUMOVIRUS NOT DETECTED; INFLUENZA A- RESP PCR PANEL NOT DETECTED; INFLUENZA B - RESP PCR PANEL NOT DETECTED; M. PNEUMONIAE- RESP PCR PANEL NOT DETECTED; PARAINFLUENZA VIRUS 1 NOT DETECTED; PARAINFLUENZA VIRUS 2 NOT DETECTED; PARAINFLUENZA VIRUS 3 NOT DETECTED; PARAINFLUENZA VIRUS 4 NOT DETECTED; RHINOVIRUS/ENTEROVIRUS NOT DETECTED; RSV- RESP PCR PANEL NOT DETECTED; SARS-CoV-2 -RESP PCR PANEL NOT DETECTED
[2022-07-02] MEDS ORDERED: hydrALAZINE 25 MG TABLET PO SCH (22:00)
[2022-07-02] MEDS ORDERED: ACETAMINOPHEN 500 MG TABLET PO STA (23:19)
--- NOTE | 2022-07-02 23:25 | ED Physician Documentation ---
ED Addendum - Addendum Addendum: 07/02/22 23:20 [facility]'s [facility] [place] but there are no beds available. patient is on waitlist. [facility] just called back with bed available and I d/w Dr. Arben Ballesteros, [facility] who says they can dialyze him there. plan to transfer for further management. d/w Dr. Retana - Impression 1. esrd 2. pneumonia 3. hypoglycemia Condition stable disposition transfer 07/03/22 00:06
[2022-07-03 02:04] VITALS: BP 141/84
[2022-07-03] MEDS: oxyCODONE 5 MG TABLET PO PRN (02:10)
[2022-07-03] MEDS ORDERED: PANTOPRAZOLE 40 MG TABLET PO SCH (09:00)
[2022-07-03] MEDS ORDERED: levoFLOXacin 750 MG/150 ML 750 MG/150 ML BAG IV SCH (09:00)
[2022-07-03] MEDS ORDERED: TORSEMIDE 20 MG TABLET PO SCH (09:00)
== END 2022-07-03 03:00 | disposition short-term general hospital (02) ==
LOC: EDUNIT# → ED 12:34
DX: J06.9 Acute upper respiratory infection, unspecified (principal); J18.9 Pneumonia, unspecified organism; E11.649 Type 2 diabetes mellitus with hypoglycemia without coma; E11.22 Type 2 diabetes mellitus with diabetic chronic kidney disease; R09.02 Hypoxemia; D72.829 Elevated white blood cell count, unspecified; I10 Essential (primary) hypertension; Z79.4 Long term (current) use of insulin; Z95.5 Presence of coronary angioplasty implant and graft; Z20.822 Contact with and (suspected) exposure to COVID-19
CPT/HCPCS: 36415; 71045; 80048; 80053; 83690; 83735; 85025; 87633; 87635; 93005; 94640; 96365; 96375; 99285; A9270; J1815

== ENCOUNTER 2022-11-07 13:32 | Outpatient (CLI) | payer MEDICARE, OTHER | END 2022-11-07 23:59 | disposition EMS.NT | LOC: EMS 13:32 | DX: R55 Syncope and collapse (principal) ==

== ENCOUNTER 2022-11-15 06:57 | Outpatient (CLI) | payer MEDICARE, OTHER | END 2022-11-15 23:59 | disposition E | LOC: EMS 06:57 | DX: I46.9 Cardiac arrest, cause unspecified (principal) ==